=== PATIENT | female | born 1935 | race Caucasian/White ===

== ENCOUNTER 2024-01-14 19:45 | Emergency (ER) | payer MEDICARE, SELFPAY ==
[2024-01-14 19:46] VITALS: BMI 23.0
[2024-01-14 19:48] VITALS: BP 135/63
[2024-01-14 19:56] VITALS: BP 119/75
[2024-01-14 20:00] VITALS: BP 130/66
--- NOTE | 2024-01-14 21:18 | ED.GENMED ---
History of Present Illness
General
Chief Complaint: Fall
Time Seen by Provider: 01/14/24 20:01
Travel History
Have you had any contact with someone who has COVID-19?: No
Do you have any symptoms of coronavirus? Fever > 100 degrees, chills, cough, shortness of breath, sore throat, loss of taste or smell, muscle aches, or headache?: No
History of Present Illness
History of Present Illness:
88-year-old female with history dementia presents to the emergency department from her nursing facility for evaluation after a mechanical fall. She states she struck her head on the ground there was no reported loss of consciousness. She is not on
anticoagulants. She is also complaining of right gluteal pain
Past History
Past History
ED Past Medical History: GERD, HTN and Hypercholesterolemia
ED Past Surgical History: Appendectomy, Bowel resection, (X 4), Gynecological (Hysterectomy) and Orthopedic (Back surgery, Left hip replacement)
Social History
Tobacco: Non-smoker
Alcohol: None
Personal:
Living: assisted living
Review of Systems
Review of Systems
Allergies reviewed?: Yes
All Other Systems: ROS reviewed and negative except as documented in HPI and ROS
Phy Exam
Physical Exam
Physical Exam:
GEN: Well appearing, NAD, WDWN
HEENT: Normocephalic and atraumatic, no ecchymosis or swelling, oral mucosa moist, no scleral icterus.
Cardiac: Regular rate and rhythm, no murmur
Lung: No respiratory distress, no tachypnea
MSK: No gross deformity or injuries. No midline cervical, thoracic, or lumbar spinal tenderness
Skin: Good color, no pallor or jaundice, no rashes
Neuro: Alert and oriented to baseline, follows commands, moves all extremities freely with no focal deficits
Psych: Calm, cooperative
Course
Orders/Labs/Results
Orders:
Orders
01/14/24 20:22
CT Head W/o Iv Contrast Urgent
Comment:
Reason For Exam: fall head injury
CR Hip - RT w/wo Pel 2-3 Vw* Urgent
Comment:
Reason For Exam: fall, R buttock pain
Include a pelvis x-ray?: Yes
Vital Signs
Initial and Last Documented VS:
Initial Vital Signs
Temp Pulse Resp BP Pulse Ox
97.4 F 76 16 135/63 95
01/14/24 19:48 01/14/24 19:48 01/14/24 19:48 01/14/24 19:48 01/14/24 19:48
Last Documented Vital Signs
Temp Pulse Resp BP Pulse Ox
97.4 F 67 14 130/66 96
01/14/24 19:48 01/14/24 20:30 01/14/24 20:30 01/14/24 20:00 01/14/24 20:15
MDM/Problems Addressed
MDM/Problems Addressed:
Patient's imaging is unremarkable. Head CT negative, hip and pelvis x-ray showed no acute fracture. The patient was able to ambulate in the emergency department without difficulty. Discharged in stable condition into the care of her son who will
take her back to assisted living facility
*Critical Care Note
Total Time (30-74mins, 75-104mins- exclusive of procedures): Not Applicable
ED Attending Note
-
Portions of this chart may have been created with voice recognition software.� Occasional wrong word or��sound alike� substitutions may have occurred due to the inherent limitations of voice recognition software.
Discharge Plan
Departure
Patient Disposition: Home (Routine Discharge)
Date of Disposition: 01/14/24
Time of Disposition: 21:50
Patient with high blood pressure during this ER visit?: No
Discharge Problem:
Fall, Contusion of hip, right
Instructions: Preventing falls in adults
Prescriptions:
No Action
atorvastatin [Lipitor] 20 mg Tablet
20 mg PO QPM
donepezil 10 mg Tablet
10 mg PO HS
amlodipine [Norvasc] 5 mg Tablet
5 mg PO DAILY
acetaminophen [Tylenol Extra Strength] 500 mg Tablet
100 mg PO TID
calcium carbonate [Calcium 600] 600 mg calcium (1,500 mg) Tablet
600 mg PO BID
levothyroxine [Synthroid] 50 mcg Tablet
50 mcg PO DAILY
pantoprazole 40 mg Tablet,Delayed Release (Dr/Ec)
40 mg PO DAILY
ferrous sulfate 325 mg (65 mg iron) Tablet
325 mg PO MOWEFR@0800
cholecalciferol (vitamin D3) [Vitamin D3] 25 mcg (1,000 unit) Capsule
25 mcg PO DAILY
ibandronate 150 mg Tablet
150 mg PO MONTHLY
Referrals:
Karina Gautam DO [Family Provider] -
Interventions
Interventions:
*Risk Screen - Suicide Last Done: 01/14/24 20:32
*General Assessment Last Done: 01/14/24 20:32
*Neglect/Abuse Screening Last Done: 01/14/24 20:32
ED- Fall Risk Assessment Last Done: 01/14/24 20:32
ED-Musculoskeletal Assessment Last Done: 01/14/24 20:32
ED- Neurological Assessment Last Done: 01/14/24 20:32
ED-Skin Assessment Last Done: 01/14/24 20:32
Discharge Date and Time
Print Language: BRITISH
== END 2024-01-14 22:14 | disposition home or self-care (01) ==
LOC: EMR 19:45
PROVIDERS: EMERGENCY PHYSICIAN Student in an Organized Health Care Education/Training Program; FAMILY PHYSICIAN Student in an Organized Health Care Education/Training Program
DX: S09.90XA Unspecified injury of head, initial encounter (principal); W19.XXXA Unspecified fall, initial encounter; K21.9 Gastro-esophageal reflux disease without esophagitis; I10 Essential (primary) hypertension; E78.00 Pure hypercholesterolemia, unspecified; S70.01XA Contusion of right hip, initial encounter; Z90.49 Acquired absence of other specified parts of digestive tract; Z90.710 Acquired absence of both cervix and uterus; Z96.642 Presence of left artificial hip joint
CPT/HCPCS: 99284; 70450; 73502

== ENCOUNTER 2024-07-15 08:06 | Emergency (ER) | payer MEDICARE, SELFPAY ==
[2024-07-15] VITALS (8 sets, daily range): BP systolic 110–123; BP diastolic 74–84; BMI 23.2
--- NOTE | 2024-07-15 08:16 | ED.GENMED ---
History of Present Illness
General
Chief Complaint: Abdominal Symptoms
Source: patient and ambulance crew
Exam Limitations: dementia
Time Seen by Provider: 07/15/24 08:07
Nursing documentation reviewed up to this point in time: agreed with
History of Present Illness
History of Present Illness:
89-year-old female presents emergency department due to vomiting coffee-ground emesis per [facility]. EMS did not witness any vomiting. EMS also noted she had diarrhea.
Past History
Past History
ED Past Medical History: GERD, HTN and Hypercholesterolemia
ED Past Surgical History: Appendectomy, Bowel resection, (X 4), Gynecological (Hysterectomy) and Orthopedic (Back surgery, Left hip replacement)
Social History
Tobacco: Non-smoker
Alcohol: None
Drug: None
Personal:
Living: assisted living
Review of Systems
Review of Systems
Allergies reviewed?: Yes
All Other Systems: Not applicable
Constitutional: Reports no symptoms
EENT: Reports no symptoms
Respiratory: Reports no symptoms
Cardiac: Reports no symptoms
ABD/GI: Reports vomiting and diarrhea
: Reports no symptoms
Musculoskeletal: Reports no symptoms
Skin: Reports no symptoms
Neurological: Reports no symptoms
Endocrine: Reports no symptoms
Phy Exam
Physical Exam
Physical Exam:
Physical Exam
General: no apparent distress, not acutely ill
Neck: supple. no meningeal signs. normal posterior pharynx
Heart: s1/s2 regular rate and rhythm, no murmur. equal radial
pulses.
HEENT: Pupils equal round reactive to light, EOMI
Lungs: no acute respiratory distress. clear bilaterally
Abdomen: normal bowel sounds. not tender. no CVAT, rectal exam guaiac negative brown stool
Neuro: alert and oriented to person and place. no focal neurological deficits cranial nerves II through XII intact
Skin: no rash
Psychiatric: well kept. interactive and cooperative
Extremities: no edema. no calf tenderness. negative homans. good distal pulses
Course
Orders/Labs/Results
Orders:
Orders
07/15/24 08:15
Electrocardiogram (*1) Stat
Reason for Study: QTc Monitoring
EKG- Treatment ONCE
IV Insert/Care/Rem.- Treatment PRN
07/15/24 08:16
Electrocardiogram (*1) Urgent
07/15/24 08:36
Type+Screen Urgent
Complete Blood Count/With Diff Urgent
Comprehensive Metabolic Panel Urgent
07/15/24 09:40
ABO2 Urgent
BBK Wristband Number:
Associate notified that ABO2 has been ordered: [id number]
Date: 07/15/24
Time: 08:56
Youth Minister ID: [id number]
Abnormal Lab Results
07/15/24
08:36
WBC 11.7 H 10^3/uL
(4.8-10.8)
MCHC 31.8 L g/dL
(33.0-37.0)
MPV 11.3 H fL
(7.4-10.4)
Abs Immat Gran (auto) 0.1 H 10^3/uL
(0-0.05)
Absolute Neuts (auto) 10.4 H 10^3/uL
(1.4-6.5)
Absolute Lymphs (auto) 0.7 L 10^3/uL
(1.2-3.4)
Neutrophils % 89.1 H %
(42.2-75.2)
Lymphocytes % 6.1 L %
(20.5-51.1)
BUN 19 H mg/dl
(7-17)
Glucose 129 H mg/dl
(70-99)
07/15/24 08:36
07/15/24 08:36
Vital Signs
Initial and Last Documented VS:
Initial Vital Signs
Pulse Resp BP
97 15 111/74
07/15/24 08:15 07/15/24 08:15 07/15/24 08:15
Last Documented Vital Signs
Temp Pulse Resp BP Pulse Ox
97.7 F 75 17 113/84 100
07/15/24 08:17 07/15/24 13:00 07/15/24 13:00 07/15/24 13:00 07/15/24 08:17
MDM/Problems Addressed
Differential Diagnosis Includes:
GI bleed, gastroenteritis
MDM/Problems Addressed:
89-year-old female with nausea vomiting diarrhea. Abdomen benign. Guaiac testing negative.
*Pulse Oximetry
Patient hypoxic: no
*EKG
Interpreted by ED Provider?: Yes
EKG Intrepretation Date: 07/15/24
EKG Intrepretation Time: 08:45
Interpretation: abnormal
Comparison EKG: changes noted
Heart Rate: 86
Rate: normal
Rhythm: sinus
[place]: normal axis
Interval: normal interval
QRS Pattern: normal QRS
Ischemia: no ischemia
*Air Conditioning Mechanic Interpretation
Rate: normal
Interpretation: normal
Heart Rate: 84
Rhythm: sinus
*Critical Care Note
Total Time (30-74mins, 75-104mins- exclusive of procedures): Not Applicable
Data Reviewed
Review of Other/Old Records Reveals: Labs (BUN 15 on 04/11/23)
Source: records
Patient Management
Social determinants of health affecting care: Living situation and Strong social support
Escalation/DeEscalation of care consider admission/obs:
admit not indicated
ED Attending Note
-
Portions of this chart may have been created with voice recognition software.� Occasional wrong word or��sound alike� substitutions may have occurred due to the inherent limitations of voice recognition software.
Discharge Plan
Departure
Patient Disposition: Long-Term/SNF
Date of Disposition: 07/15/24
Time of Disposition: 12:39
Patient with high blood pressure during this ER visit?: Yes
Condition: Good
Discharge Problem:
Nausea and vomiting in adult, Diarrhea
Instructions: Diarrhea in teens and adults, Nausea and Vomiting, Adult (DC), BLOOD PRESSURE
Prescriptions:
No Action
atorvastatin [Lipitor] 20 mg Tablet
20 mg PO HS
donepezil 10 mg Tablet
10 mg PO HS
amlodipine [Norvasc] 5 mg Tablet
5 mg PO DAILY
acetaminophen [Tylenol Extra Strength] 500 mg Tablet
1,000 mg PO TID
calcium carbonate [Calcium 600] 600 mg calcium (1,500 mg) Tablet
600 mg PO BID@0900,1700
levothyroxine [Synthroid] 50 mcg Tablet
50 mcg PO DAILY@0700
pantoprazole 40 mg Tablet,Delayed Release (Dr/Ec)
40 mg PO HS
ferrous sulfate 325 mg (65 mg iron) Tablet
325 mg PO MOWEFR@0900
cholecalciferol (vitamin D3) [Vitamin D3] 25 mcg (1,000 unit) Capsule
25 mcg PO DAILY
ibandronate 150 mg Tablet
150 mg PO MONTHLY
Activity Restrictions/Additional Instructions:
Return for any concerns. Follow up with primary care in 3-5 days.
Interventions
Interventions:
*Risk Screen - Suicide Last Done: 07/15/24 08:17
*General Assessment Last Done: 07/15/24 08:17
*Neglect/Abuse Screening Last Done: 07/15/24 08:17
ED- Fall Risk Assessment Last Done: 07/15/24 08:48
*ED COVID-19 Vaccine History Last Done: 07/15/24 08:17
JK-[id number]-Dzuliaeutx Assessment Last Done: 07/15/24 08:48
Discharge Date and Time
Print Language: FAROESE
[2024-07-15 08:45] LABS: % Basophils 0.2 % (0-2); % Eosinophils 0.1 % (0-6); % Immature Granulocytes 0.4 % (0-0.5); % Lymphocytes 6.1 % (20.5-51.1); % Monocytes 4.1 % (1.7-9.3); % Neutrophils 89.1 % (42.2-75.2); Absolute Immature Granulocytes 0.1 10^3/uL (0-0.05); Absolute Lymphocytes 0.7 10^3/uL (1.2-3.4); Absolute Monocytes 0.5 10^3/uL (0.1-0.6); Absolute Neutrophils 10.4 10^3/uL (1.4-6.5); Hematocrit 39.6 % (37.0-47.0); Hemoglobin 12.6 g/dL (12.0-16.0); Mean Corp Hgb Conc. 31.8 g/dL (33.0-37.0); Mean Corpuscular Hgb 28.3 pg (27.0-31.0); Mean Platelet Volume 11.3 fL (7.4-10.4); Nucleated Red Blood Cells % 0 %; Platelet Count 229 10^3/uL (130-400); Red Blood Cell Count 4.45 10^6/uL (4.20-5.40); Red Cell Dist. Width 14.5 % (11.5-14.5); White Blood Cell Count 11.7 10^3/uL (4.8-10.8)
[2024-07-15 09:05] LABS: ALT (SGPT) 14 U/L (0-35); AST (SGOT) 24 U/L (14-36); Albumin 4.7 g/dl (3.5-5.0); Alkaline Phosphatase 73 U/L (38-126); Blood Urea Nitrogen 19 mg/dl (7-17); Carbon Dioxide 27 mmol/L (22-30); Chloride 98 mmol/L (98-107); Estimated Creatinine Clearance 45 ml/min; Glucose 129 mg/dl (70-99); Potassium 4.2 mmol/L (3.5-5.1); Sodium 143 mmol/L (135-145); Total Bilirubin 0.7 mg/dl (0.2-1.3); Total Protein 7.7 g/dl (6.3-8.2); eGFR > 60.00
--- NOTE | 2024-07-15 13:21 | EDRN ---
Reviewed discharge instructions with patient's son. Report given to FLORENCIA Suarez at [facility]. [facility] taken to [facility] in [facility]. Son is taking patient back to [facility].
== END 2024-07-15 13:20 ==
LOC: EMR 08:06
PROVIDERS: EMERGENCY PHYSICIAN Emergency Medicine
DX: R11.2 Nausea with vomiting, unspecified (principal); R19.7 Diarrhea, unspecified; F03.90 Unspecified dementia, unspecified severity, without behavioral disturbance, psychotic disturbance, mood disturbance, and anxiety; E78.00 Pure hypercholesterolemia, unspecified; I10 Essential (primary) hypertension; K21.9 Gastro-esophageal reflux disease without esophagitis; Z90.49 Acquired absence of other specified parts of digestive tract; Z90.710 Acquired absence of both cervix and uterus
CPT/HCPCS: 99284; 80053; 85025; 86850; 86900; 86901; 93005

== ENCOUNTER 2024-08-09 17:39 | Emergency (ER) | payer MEDICARE, SELFPAY ==
[2024-08-09] VITALS (11 sets, daily range): BP systolic 93–127; BP diastolic 50–70; BMI 19.5
[2024-08-09 18:03] LABS: % Basophils 0.2 % (0-2); % Eosinophils 0.2 % (0-6); % Immature Granulocytes 0.4 % (0-0.5); % Lymphocytes 11.4 % (20.5-51.1); % Neutrophils 81.8 % (42.2-75.2); Absolute Immature Granulocytes 0.1 10^3/uL (0-0.05); Absolute Lymphocytes 1.5 10^3/uL (1.2-3.4); Absolute Monocytes 0.8 10^3/uL (0.1-0.6); Absolute Neutrophils 10.4 10^3/uL (1.4-6.5); Hematocrit 34.8 % (37.0-47.0); Hemoglobin 11.2 g/dL (12.0-16.0); Mean Corp Hgb Conc. 32.2 g/dL (33.0-37.0); Mean Platelet Volume 10.3 fL (7.4-10.4); Nucleated Red Blood Cells % 0 %; Platelet Count 241 10^3/uL (130-400); Red Cell Dist. Width 15.1 % (11.5-14.5); White Blood Cell Count 12.8 10^3/uL (4.8-10.8)
[2024-08-09 18:23] LABS: Blood Urea Nitrogen 19 mg/dl (7-17); Calcium 7.2 mg/dl (8.4-10.2); Carbon Dioxide 23 mmol/L (22-30); Chloride 99 mmol/L (98-107); Estimated Creatinine Clearance 50 ml/min; Glucose 111 mg/dl (70-99); Sodium 139 mmol/L (135-145); eGFR > 60.00
--- NOTE | 2024-08-09 18:29 | ED.GENMED ---
History of Present Illness
General
Chief Complaint: Abdominal Symptoms
Source: patient, ambulance crew and assisted
Exam Limitations: dementia
Time Seen by Provider: 08/09/24 17:51
Nursing documentation reviewed up to this point in time: agreed with
History of Present Illness
History of Present Illness:
89-year-old female with a past medical history of dementia, hypertension, hyperlipidemia, CKD, GERD who presents to the emergency room from [facility]; she presents via EMS for evaluation of increased lethargy and diarrhea.
Patient is unable to meaningfully participate in history due to her severe dementia. When asked her how she is feeling she says 'okay.' She denies any specific complaints on review of systems. I spoke to the assisted staff directly to obtain
collateral history: Apparently over the past 2 to 3 days she has had watery diarrhea. She has had increasing lethargy over that period of time and today was so weak and lethargic that they could not get her to stand up and so they sent her to the
ER. No fevers noted. No vomiting. No other symptoms reported.
Past History
Past History
ED Past Medical History: GERD, HTN and Hypercholesterolemia
ED Past Surgical History: Appendectomy, Bowel resection, (X 4), Gynecological (Hysterectomy) and Orthopedic (Back surgery, Left hip replacement)
Social History
Tobacco: Non-smoker
Alcohol: None
Drug: None
Personal:
Living: assisted living
Review of Systems
Review of Systems
Unable to obtain full review of systems at this time due to: dementia
All Other Systems: Not applicable
Phy Exam
Physical Exam
Physical Exam:
General: Awake, alert, oriented x3; no acute distress
Head: Normocephalic, atraumatic
Eyes: Conjunctiva normal, sclera anicteric
Throat: Airway intact, slightly dry mucous membrane
Neck: Trachea midline, supple without meningismus
Lungs: Clear to auscultation bilaterally, no wheezing, rales, rhonchi
Heart: Regular rate and rhythm, no murmurs, gallops, or rubs
Abd: Soft, non distended, nontender
Rectal: No fecal impaction or stool in the rectal vault noted
Neuro: No gross deficit
Extremities: Warm and well-perfused
Scores
Heart Failure Risk
Heart Failure Risk Score: Not Applicable
Heart Score for Chest Pain Patients
STEMI patient?: Not applicable
Withdrawal Assessment of Alcohol
Withdrawal Assessment Completed?: Not applicable
Course
Orders/Labs/Results
Orders:
Orders
08/09/24 17:55
Basic Metabolic Panel Urgent
COVID-19 Antigen Urgent
Source: Nasal Swab
Complete Blood Count/With Diff Urgent
Influenza A+B Rapid Molecular Urgent
ERIKA Source: Nasal Swab
Specimen Description:
08/09/24 18:26
Urinalysis Reflex To Culture Urgent
Date Specimen was Collected: 08/09/24
Time Specimen was Collected: 18:11
08/09/24 18:32
0.9% Sodium Chloride 1000 ml [Nss] 1,000 ml IV BOLUS
08/09/24 19:50
0.9% Sodium Chloride 1000 ml [Nss] 1,000 ml IV BOLUS
Abnormal Lab Results
08/09/24
17:55
WBC 12.8 H 10^3/uL
(4.8-10.8)
RBC 4.00 L 10^6/uL
(4.20-5.40)
Hgb 11.2 L g/dL
(12.0-16.0)
Hct 34.8 L %
(37.0-47.0)
MCHC 32.2 L g/dL
(33.0-37.0)
RDW 15.1 H %
(11.5-14.5)
Abs Immat Gran (auto) 0.1 H 10^3/uL
(0-0.05)
Absolute Neuts (auto) 10.4 H 10^3/uL
(1.4-6.5)
Absolute Monos (auto) 0.8 H 10^3/uL
(0.1-0.6)
Neutrophils % 81.8 H %
(42.2-75.2)
Lymphocytes % 11.4 L %
(20.5-51.1)
BUN 19 H mg/dl
(7-17)
Glucose 111 H mg/dl
(70-99)
Calcium 7.2 L mg/dl
(8.4-10.2)
08/09/24 17:55
08/09/24 17:55
Vital Signs
Initial and Last Documented VS:
Initial Vital Signs
Temp Pulse Resp BP Pulse Ox
36.8 C 90 18 120/59 95
08/09/24 17:43 08/09/24 17:43 08/09/24 17:43 08/09/24 17:43 08/09/24 17:43
Last Documented Vital Signs
Temp Pulse Resp BP Pulse Ox
37.0 C 88 18 103/70 94
08/09/24 20:57 08/09/24 23:19 08/09/24 23:19 08/09/24 23:19 08/09/24 23:19
MDM/Problems Addressed
Differential Diagnosis Includes:
Gastroenteritis, colitis
MDM/Problems Addressed:
89-year-old female presents for evaluation of increasing lethargy and weakness in the setting of recent diarrheal illness. Vitals and exam as above. Will place an IV check labs including a CBC and a CMP; will swab for COVID and flu, send norovirus
studies. Will send stool studies if able. Will check urinalysis. Provide IV fluids. Reassess after the above.
Labs show slight leukocytosis of 12.8. CMP no clinically significant abnormalities. Urinalysis negative for infection. COVID and flu negative. Patient received IV fluids here. She has not had any diarrhea during entirety of ED stay. I had a
long discussion with the patient's son was at the bedside. We spoke about option for admission for observation for what I suspect is likely enteritis versus discharge back to assisted�I am concerned that admission may result in some delirium as
she does have history of sundowning; am not sure that benefit from admission for mild diarrheal illness with outweigh risk of significant delirium. Son feels comfortable with her going back to assisted, we spoke about return precautions. Can
write a prescription for outpatient stool studies. All questions answered.
*Critical Care Note
Total Time (30-74mins, 75-104mins- exclusive of procedures): Not Applicable
Patient Management
Social determinants of health affecting care: Living situation (Monitored setting-assisted) and Strong social support
Escalation/DeEscalation of care consider admission/obs:
Discussed admission for observation versus discharge assisted�using shared decision making with son opted for discharge
ED Attending Note
-
Portions of this chart may have been created with voice recognition software.� Occasional wrong word or��sound alike� substitutions may have occurred due to the inherent limitations of voice recognition software.
Discharge Plan
Departure
Patient Disposition: Home (Routine Discharge)
Date of Disposition: 08/09/24
Time of Disposition: 22:52
Patient with high blood pressure during this ER visit?: No
Discharge Problem:
Diarrhea, Dehydration
Instructions: Diarrhea in teens and adults, Dehydration, Adult (DC), [place] Diet
Prescriptions:
No Action
atorvastatin [Lipitor] 20 mg Tablet
20 mg PO HS
donepezil 10 mg Tablet
10 mg PO HS
amlodipine [Norvasc] 5 mg Tablet
5 mg PO DAILY
acetaminophen [Tylenol Extra Strength] 500 mg Tablet
1,000 mg PO TID
calcium carbonate [Calcium 600] 600 mg calcium (1,500 mg) Tablet
600 mg PO BID@0900,1700
levothyroxine [Synthroid] 50 mcg Tablet
50 mcg PO DAILY@0700
pantoprazole 40 mg Tablet,Delayed Release (Dr/Ec)
40 mg PO HS
ferrous sulfate 325 mg (65 mg iron) Tablet
325 mg PO MOWEFR@0900
cholecalciferol (vitamin D3) [Vitamin D3] 25 mcg (1,000 unit) Capsule
25 mcg PO DAILY
ibandronate 150 mg Tablet
150 mg PO MONTHLY
loperamide 2 mg Capsule
2 mg PO Q4H MDD 6mg PRN (Reason: diarrhea)
Referrals:
Hope Weiss, [Family Provider] - Follow up in 2-3 days
Activity Restrictions/Additional Instructions:
Thank you for visiting the Emergency Department at [facility].
1. Please schedule a follow up appointment as directed. Call first thing tomorrow morning to make an appointment.
2. If indicated, please take your medications as instructed and indicated on discharge paperwork.
3. If any of your symptoms do not improve, or persist, or become more severe within 6-12 hours, please return to the emergency department for further care.
4. Please return to the emergency department if you develop a headache, neck pain/stiffness, fever greater than 100.4F, chest pain, shortness of breath, persistent nausea, vomiting, slurred speech, difficulty walking, numbness/tingling, weakness,
signs of infection or any other symptoms that are worrisome to you.
Please call [phone] if you have any questions.
Interventions
Interventions:
*Risk Screen - Suicide Last Done: 08/09/24 18:02
*General Assessment Last Done: 08/09/24 18:02
*Neglect/Abuse Screening Last Done: 08/09/24 18:02
*ED COVID-19 Vaccine History Last Done: 08/09/24 18:08
*Nursing Disposition Last Done: 08/09/24 23:20
AY-[id number]-Uzbzymtvqw Assessment Last Done: 08/09/24 18:09
Discharge Date and Time
Discharge Date/Time: 08/09/24 23:22
Print Language: BRITISH
[2024-08-09 18:36] LABS: Urine Albumin Trace (Neg - Trace); Urine Bilirubin Negative (Negative); Urine Character Clear (Clear); Urine Color Yellow; Urine Glucose Negative (Negative); Urine Ketone Negative (Negative); Urine Leukocyte Negative (Negative); Urine Nitrite Negative (Negative); Urine Occult Blood Negative (Negative); Urine Specific Gravity 1.015 (<1.030); Urine Urobilinogen Negative (Neg - 1+)
[2024-08-09] MEDS: NSS 1000 IV ×2 (18:37→19:51)
[2024-08-09 18:41] LABS: COVID-19 Antigen Negative (Negative)
[2024-08-09 20:35] LABS: Glucose - Point of Care 76 mg/dl (70-99)
[2024-08-09 22:11] LABS: Glucose - Point of Care 89 mg/dl (70-99)
== END 2024-08-09 23:22 | disposition home or self-care (01) ==
LOC: EMR 17:39
PROVIDERS: EMERGENCY PHYSICIAN Emergency Medicine; FAMILY PHYSICIAN Hospitalist
DX: R19.7 Diarrhea, unspecified (principal); E86.0 Dehydration; Z11.52 Encounter for screening for COVID-19; F03.C0 Unspecified dementia, severe, without behavioral disturbance, psychotic disturbance, mood disturbance, and anxiety; I12.9 Hypertensive chronic kidney disease with stage 1 through stage 4 chronic kidney disease, or unspecified chronic kidney disease; N18.9 Chronic kidney disease, unspecified; K21.9 Gastro-esophageal reflux disease without esophagitis; Z98.0 Intestinal bypass and anastomosis status; Z96.642 Presence of left artificial hip joint; E78.00 Pure hypercholesterolemia, unspecified; Z88.5 Allergy status to narcotic agent
CPT/HCPCS: 99284; 96360; 96361; 80048; 81003; 82962; 85025; 87502; 87811

== ENCOUNTER 2024-08-16 10:52 | Observation (INO) | payer MEDICARE, SELFPAY ==
[2024-08-16] VITALS (10 sets, daily range): BP systolic 104–123; BP diastolic 49–71; BMI 23.3; BMI 22.9
--- NOTE | 2024-08-16 07:49 | ED.GENMED ---
History of Present Illness
General
Chief Complaint: Rectal Bleeding
Time Seen by Provider: 08/16/24 07:33
History of Present Illness
History of Present Illness:
89-year-old female presents to the emergency department for evaluation of reported hematochezia and hematemesis this morning. History is limited due to patient's dementia. She was in this emergency department 1 week ago for lethargy and diarrhea.
Diarrhea has become darker in bloody as of this morning. The patient reports shortness of breath and nausea on arrival. She is not on anticoagulants. Does take oral iron supplements
Past History
Past History
ED Past Medical History: GERD, HTN and Hypercholesterolemia
ED Past Surgical History: Appendectomy, Bowel resection, (X 4), Gynecological (Hysterectomy) and Orthopedic (Back surgery, Left hip replacement)
Social History
Tobacco: Non-smoker
Alcohol: None
Drug: None
Personal:
Living: assisted living
Review of Systems
Review of Systems
Allergies reviewed?: Yes
All Other Systems: ROS reviewed and negative except as documented in HPI and ROS
Phy Exam
Physical Exam
Physical Exam:
GEN: Generally pale, appears anxious
HEENT: Oral mucosa moist, no scleral icterus
Cardiac: Regular rate and rhythm
Lung: No respiratory distress, no tachypnea, lungs clear to auscultation bilaterally
Abdomen: Soft, nontender
Rectal: Melanotic stool, heme positive
MSK: No gross deformity or injuries
Skin: Good color, no pallor or jaundice, no rashes
Neuro: Alert, oriented to self, follows commands
Psych: Calm, cooperative
Course
Orders/Labs/Results
Orders:
Orders
08/16/24 07:47
Ondansetron Injectable [Zofran] 4 mg IV NOW STA
Pantoprazole [Protonix IV] 40 mg IV NOW STA
08/16/24 07:49
Electrocardiogram (*1) Urgent
Reason for Study: QTc Monitoring
EKG- Treatment ONCE
CR Chest Portable - 1 View Urgent
Comment:
Reason For Exam: SOB
Reason Study Needs to be Portable: Other
08/16/24 07:59
Type+Screen Urgent
Complete Blood Count/With Diff Urgent
Comprehensive Metabolic Panel Urgent
08/16/24 09:13
0.9% Sodium Chloride 500 ml [Nss] 500 ml IV BOLUS
Calcium Gluconate 1 gram/100mL [Calcium Gluconate] 1 gram in 100 ml IV ONCE
08/16/24 10:[address] Non Medication Order As Directed
Physician Order: NOTIFY MD WHEN MED REC DONE
Above order entered?: Yes
08/16/24 10:37
Admit/Transfer Patient As Directed
Co-Sign Provider:
Level of Care: Observation services
Assign to:: Medical/Surgical
Physician / Group: nando suazo
Diagnosis: Acute GI bleed,diarrhea
PRN Pain Medication Management As Directed
May give lesser potent ordered pain med per pt: Yes
preference::
Protocol:: Medication orders for pain may be administered in a
manner that supports deferring to patient preference
when the pt is:
- Requesting an ordered lesser potent pain medication.
Least to most potent pain medications are defined
as: acetaminophen < NSAID < tramadol < opioids
(morphine, oxycodone, hydromorphone).
- Requesting a lesser dose of the same medication IF
ORDERED.
- Requesting a less intrusive route of administration
if both routes are prescribed by the provider (PO <
IV).
08/16/24 10:40
Code Status As Directed
Resuscitation Status: Do not resuscitate
Based on pt advanced directive or healthcare POA form: Yes
DNR Bracelet Application ONCE
08/16/24 20:00
0.9% Sodium Chloride [Nss (Preservative Free)] 10 ml IV BID
Pantoprazole [Protonix IV] 40 mg IV BID
08/16/24 21:00
HH [H&H] Routine
Abnormal Lab Results
08/16/24
07:59
WBC 11.5 H 10^3/uL
(4.8-10.8)
RBC 3.70 L 10^6/uL
(4.20-5.40)
Hgb 10.4 L g/dL
(12.0-16.0)
Hct 32.1 L %
(37.0-47.0)
MCHC 32.4 L g/dL
(33.0-37.0)
RDW 15.9 H %
(11.5-14.5)
MPV 11.2 H fL
(7.4-10.4)
Abs Immat Gran (auto) 0.1 H 10^3/uL
(0-0.05)
Absolute Neuts (auto) 9.6 H 10^3/uL
(1.4-6.5)
Absolute Lymphs (auto) 0.9 L 10^3/uL
(1.2-3.4)
Absolute Monos (auto) 0.9 H 10^3/uL
(0.1-0.6)
Immature Gran % 0.7 H %
(0-0.5)
Neutrophils % 83.2 H %
(42.2-75.2)
Lymphocytes % 7.8 L %
(20.5-51.1)
BUN 21 H mg/dl
(7-17)
Calcium 6.9 L* mg/dl
(8.4-10.2)
Total Protein 5.8 L g/dl
(6.3-8.2)
Albumin 3.4 L g/dl
(3.5-5.0)
08/16/24 07:59
08/16/24 07:59
Vital Signs
Initial and Last Documented VS:
Initial Vital Signs
Temp Pulse Resp BP Pulse Ox
98.3 F 84 20 104/61 94
08/16/24 07:44 08/16/24 07:44 08/16/24 07:44 08/16/24 07:44 08/16/24 07:44
Last Documented Vital Signs
Temp Pulse Resp BP Pulse Ox
98.3 F 82 12 123/71 99
08/16/24 08:28 08/16/24 12:30 08/16/24 12:45 08/16/24 12:00 08/16/24 09:00
MDM/Problems Addressed
MDM/Problems Addressed:
Heme positive stool, grossly melanotic however she takes the oral iron supplementation which may obscure these results. Hemoglobin modestly decreased compared to prior labs. Will admit for further supportive care. In regards to hypocalcemia this
is likely from GI losses, IV calcium gluconate given in the ED, no significant EKG changes noted
*Critical Care Note
Total Time (30-74mins, 75-104mins- exclusive of procedures): Not Applicable
ED Attending Note
-
Portions of this chart may have been created with voice recognition software.� Occasional wrong word or��sound alike� substitutions may have occurred due to the inherent limitations of voice recognition software.
Discharge Plan
Departure
Patient Disposition: Admit
Date of Disposition: 08/16/24
Time of Disposition: 09:16
Admit to: Med/Surg
Presentation/result/management discussed w/ accepting MD/DO: Hospitalist
Discharge Problem:
Acute upper gastrointestinal bleeding, Hypocalcemia
Interventions
Interventions:
*Risk Screen - Suicide Last Done: 08/16/24 07:44
*General Assessment Last Done: 08/16/24 07:44
*Neglect/Abuse Screening Last Done: 08/16/24 07:44
*ED COVID-19 Vaccine History Last Done: 08/16/24 07:44
HZ-Urtqxd-Okzbssfejo Assessment Last Done: 08/16/24 12:56
ED- Cardiac Assessment Last Done: 08/16/24 08:54
ED- Pulmonary Assessment Last Done: 08/16/24 08:53
[2024-08-16 08:12] LABS: % Basophils 0.2 % (0-2); % Eosinophils 0.1 % (0-6); % Immature Granulocytes 0.7 % (0-0.5); % Lymphocytes 7.8 % (20.5-51.1); % Neutrophils 83.2 % (42.2-75.2); Absolute Immature Granulocytes 0.1 10^3/uL (0-0.05); Absolute Lymphocytes 0.9 10^3/uL (1.2-3.4); Absolute Monocytes 0.9 10^3/uL (0.1-0.6); Absolute Neutrophils 9.6 10^3/uL (1.4-6.5); Hematocrit 32.1 % (37.0-47.0); Hemoglobin 10.4 g/dL (12.0-16.0); Mean Corp Hgb Conc. 32.4 g/dL (33.0-37.0); Mean Corpuscular Hgb 28.1 pg (27.0-31.0); Mean Corpuscular Volume 86.8 fL (81.0-99.0); Mean Platelet Volume 11.2 fL (7.4-10.4); Nucleated Red Blood Cells % 0 %; Platelet Count 220 10^3/uL (130-400); Red Cell Dist. Width 15.9 % (11.5-14.5); White Blood Cell Count 11.5 10^3/uL (4.8-10.8)
[2024-08-16 08:30] LABS: ALT (SGPT) 13 U/L (0-35); AST (SGOT) 27 U/L (14-36); Albumin 3.4 g/dl (3.5-5.0); Alkaline Phosphatase 74 U/L (38-126); Blood Urea Nitrogen 21 mg/dl (7-17); Calcium 6.9 mg/dl (8.4-10.2); Carbon Dioxide 23 mmol/L (22-30); Chloride 102 mmol/L (98-107); Estimated Creatinine Clearance 43 ml/min; Glucose 84 mg/dl (70-99); Potassium 3.8 mmol/L (3.5-5.1); Sodium 137 mmol/L (135-145); Total Bilirubin 0.6 mg/dl (0.2-1.3); Total Protein 5.8 g/dl (6.3-8.2); eGFR > 60.00
[2024-08-16] MEDS: ZOFRAN 4 MG IV (08:30)
[2024-08-16] MEDS: PROTONIX IV 40 MG IV ×2 (08:31→20:21)
[2024-08-16] MEDS: CALCIUM GLUCONATE 100 IV (09:38)
[2024-08-16] MEDS: NSS 500 IV (10:17)
--- NOTE | 2024-08-16 10:42 | HPS.HSE ---
Family Physician
-
Family Physician: Hope Weiss DO
Chief Complaint
-
Hematochezia
History of Present Illness
89-year-old female with past medical history of GERD, hypertension, CKD, hypothyroidism, hyperlipidemia, scleroderma, Raynaud's syndrome, hard of hearing, dementia came to the hospital for evaluation of hematochezia. History is limited due to
patient history of dementia. Patient denies mild abdominal pain. Denies any shortness of breath. Per ED staff patient had hematochezia this morning. Stools were darker in the ED. Currently not on anticoagulations.
Medical History
Past Medical History
Past Medical History: Reports GERD, HTN, Hypothyroidism and Other (Raynaud's disease)
Past Surgical History: Reports Appendectomy, Bowel Resection, , Gynocological and Orthopedic
Social History
Unable to obtain full social history at this time due to: Dementia
Tobacco: Non-smoker
Family History
Family History: Not pertinent
Allergies / Home Medications
Allergies reflects when Allergies were last updated in [employer].
Home Medications with original date entered in [employer]
Allergy/Medication List:
Allergies
Allergy/AdvReac Type Severity Reaction Status Date / Time
codeine Allergy Unknown Verified 08/16/24 07:47
Home Medications
acetaminophen 500 mg tablet (Tylenol Extra Strength) 1,000 mg PO TID Pain 09/09/23
amlodipine 5 mg tablet (Norvasc) 5 mg PO DAILY Blood Pressure 09/09/23
atorvastatin 20 mg tablet (Lipitor) 20 mg PO HS High Cholesterol 09/09/23
calcium carbonate (Calcium 600) 600 mg PO BID@0900,1700 Supplement 09/09/23
donepezil 10 mg tablet 10 mg PO HS 09/09/23
ferrous sulfate 325 mg (65 mg iron) tablet 325 mg PO MOWEFR@0900 09/09/23
ibandronate 150 mg tablet 150 mg PO MONTHLY give at 6am, osteoporosis 09/09/23
levothyroxine 50 mcg tablet (Synthroid) 50 mcg PO DAILY@0715 Thyroid 09/09/23
pantoprazole 40 mg tablet,delayed release 40 mg PO HS Gastrointestinal Issue 09/09/23
loperamide 2 mg capsule 2 mg PO Q4HPRN PRN diarrhea 08/09/24
acetaminophen 325 mg tablet 650 mg PO BID@0900,2100 08/16/24
cholecalciferol (vitamin D3) 25 mcg (1,000 unit) tablet 25 mcg PO DAILY 08/16/24
Review of Systems
-
Unable to obtain full review of systems at this time due to: Dementia
History Source: Patient and [facility]
Abdomen/GI: Reports Other (Dark stool)
Physical Exam
Vital Signs
Vital Signs
Temp Pulse Resp BP Pulse Ox
98.3 F 82 26 116/59 96
08/16/24 08:28 08/16/24 10:00 08/16/24 08:28 08/16/24 10:00 08/16/24 08:53
Physical Exam
General: No Apparent Distress and Comfortable
HEENT: Moist mucous membranes and Atraumatic
Respiratory: Clear and Non Labored Respirations; No Wheezes
Cardiac: S1/S2 and Regular Rhythm
Breast: Deferred by me
GI: Soft, Non Tender and Non Distended
Rectal: Deferred by Provider
Genito-urinary: Deferred by me
Musculoskeletal: No Edema
Neuro: Awake
Psych: Calm and Apparent Dementia
Laboratory Results
-
08/16/24 07:59
Laboratory Results
Total Bilirubin 0.6 mg/dl (0.2-1.3) 08/16/24 07:59
AST 27 U/L (14-36) 08/16/24 07:59
ALT 13 U/L (0-35) 08/16/24 07:59
Alkaline Phosphatase 74 U/L (38-126) 08/16/24 07:59
Data Reviewed
-
Lab Data: Labs Reviewed by me and Discussed with Physician
Impression/Plan
-
Hematochezia suspect secondary to Possible GI bleed
start PPI for now
clears
Repeat hemoglobin later today; transfuse if hgb<7
If continues to have bleeding episodes then will need CT
Consult GI
Gentle hydration
Check iron panel, B12, folate
Anemia, suspect does have anemia of chronic disease. This could be acute on chronic
Monitor
History of hypertension
Continue amlodipine
Hypocalcemia
Replete
History of dementia, unknown type
Continue with donepezil
Hypothyroidism
Continue Synthroid
check TSH with reflective free t4
History of hyperlipidemia
History of scleroderma
History of Raynaud's syndrome
DVT prophylaxis
SCDs
DNR, per long-term paperwork
Called son, left voicemail
I spent a total of 77 minutes with the patient or on the floor. More than 50% of this time involved counseling and coordination of care.
[2024-08-16 14:18] LABS: Iron 41 ug/dl (37-170); Percent Saturation 19 % (20-50); Total Iron Binding Capacity 213 ug/dl (265-497)
[2024-08-16 15:16] LABS: Folate 7.6 ng/ml (2.76-20); Vitamin B12 810 pg/ml (239-931)
--- NOTE | 2024-08-16 15:46 | PTCARENOTE ---
Pt arrived via stretcher to room 333, pt ambulated with walker x 2 assist to bed, weighed on standing scale, bed alarm applied , vital sign taken, pt is alert but has dementia and not aware of person, place or time
[2024-08-16] MEDS: TYLENOL PO ×2 (16:26→16:39)
[2024-08-16] MEDS: OSCAL CAL 500 PO ×2 (16:26→16:39)
[2024-08-16] MEDS: NSS 1000 IV (16:27)
[2024-08-16] MEDS: NSS (PRESERVATIVE FREE) 10 ML IV (20:21)
[2024-08-16 21:20] LABS: Hemoglobin 8.7 g/dL (12.0-16.0)
[2024-08-16] MEDS: LIPITOR 20 MG PO (22:01)
[2024-08-16] MEDS: ARICEPT 10 MG PO (22:01)
[2024-08-16] MEDS: TYLENOL 1000 MG PO (22:01)
--- NOTE | 2024-08-17 04:10 | WOUNDNOTE ---
WOC RN note: Message left via tiger text to TA Jones re: recommend a hospital bed with air mattress if not already in place. Patient has a stage 4 sacral pressure injury.
[2024-08-17] MEDS: SYNTHROID 50 MCG PO (05:29)
[2024-08-17 06:00] VITALS: BMI 24.1
[2024-08-17 06:57] LABS: % Basophils 0.2 % (0-2); % Eosinophils 0.4 % (0-6); % Immature Granulocytes 0.8 % (0-0.5); % Monocytes 8.9 % (1.7-9.3); % Neutrophils 80.7 % (42.2-75.2); Absolute Immature Granulocytes 0.1 10^3/uL (0-0.05); Absolute Neutrophils 8.6 10^3/uL (1.4-6.5); Hematocrit 27.2 % (37.0-47.0); Hemoglobin 9.2 g/dL (12.0-16.0); Mean Corp Hgb Conc. 33.8 g/dL (33.0-37.0); Mean Corpuscular Hgb 28.7 pg (27.0-31.0); Mean Corpuscular Volume 84.7 fL (81.0-99.0); Mean Platelet Volume 11.2 fL (7.4-10.4); Nucleated Red Blood Cells % 0 %; Platelet Count 191 10^3/uL (130-400); Red Blood Cell Count 3.21 10^6/uL (4.20-5.40); Red Cell Dist. Width 15.8 % (11.5-14.5); White Blood Cell Count 10.6 10^3/uL (4.8-10.8)
[2024-08-17 07:13] LABS: ALT (SGPT) 11 U/L (0-35); AST (SGOT) 27 U/L (14-36); Albumin 2.7 g/dl (3.5-5.0); Alkaline Phosphatase 60 U/L (38-126); Blood Urea Nitrogen 18 mg/dl (7-17); Calcium 6.5 mg/dl (8.4-10.2); Carbon Dioxide 22 mmol/L (22-30); Chloride 104 mmol/L (98-107); Estimated Creatinine Clearance 43 ml/min; Glucose 56 mg/dl (70-99); Potassium 3.5 mmol/L (3.5-5.1); Sodium 137 mmol/L (135-145); Total Bilirubin 0.5 mg/dl (0.2-1.3); Total Protein 4.9 g/dl (6.3-8.2); eGFR > 60.00
[2024-08-17 07:39] LABS: TSH Reflex To Free T4 2.22 uIU/ml (0.47-4.68)
--- NOTE | 2024-08-17 07:49 | CON.GI ---
Addendum entered and electronically signed by Ying Mills MD 08/17/24 16:27:
I saw and examined the patient.
The BLOCKING MACHINE OPERATOR SECOND or PA's note was reviewed and I agree with the note.
Comment: 89-year-old female with multiple medical problems including dementia, chronic kidney disease, hypothyroidism, scleroderma who is extremely hard of hearing sent in from [facility] for nausea and vomiting and diarrhea for family members. As
per ER chart, there was ? Hematemesis/hematochezia but patient also on oral iron. She did have a bowel movement after admission which was brown. History cannot be obtained from patient, mostly obtained from patient's daughter and
[id number]-aqo-Evelyn. Patient denies any abdominal pain at this time, but did have episodes of nausea and vomiting and diarrhea intermittently, history of acid reflux and has been on omeprazole for few years now. No trouble swallowing. She did
reportedly lose weight but cannot quantify. As per daughter and the patient did have colonoscopy about 10 years ago or so but no polyps at that time.
Reviewing labs, hemoglobin has been in the range of 9.2-11.2 since 2022. Low iron indices noted.
-Iron deficiency anemia with dark stool on oral iron but brown in the hospital.
Heme positive stool on exam today.
Reviewed with patient's daughter and also [id number] Evelyn who is an RN. With patient's advanced dementia, they do not want to bentley into endoscopy evaluation at this time.
Reported nausea and vomiting and diarrhea episodes in the assisted living, we will monitor her bowel movements.
Currently she is on clear liquid diet-if she has any nausea and vomiting episodes, they would want to start with upper endoscopy first to see if there is any evidence of ulcer disease.
For now agree with Protonix 40 mg twice a day.
If she is able to tolerate the diet, at that time we will advance to full liquid diet followed by low residue diet.
Monitor H&H and transfuse if needed.
If she has diarrhea, will check stool studies for any evidence of infection.
Will follow-up
Original Note:
Consultation
-
Date/Time Consultation Requested: 08/16/24 1300
Date/Time Consultation Performed: 08/17/24 0930
Requesting Provider: Erick Bal MD
Performing Provider: SUDHIR Kennedy, Ying Mills MD
Reason for Consultation: black stools
Medical History
Chief Complaint / HPI
History of Present Illness:
Pt is a 89yo with hx GERD, HTN, CKD, hypothyroidism, hyperlipidemia, scleroderma, Raynaud's, hear of hearing, and dementia with onset of rectal bleeding. Rectal exam in ER with melanotic stool that was heme +. Since admission noted with black then
brown stool with hbg 10.4 with drop to 8.7. Limited evaluation with patient as confused. Per family hx GI bleeding post colonoscopy 10 year ago no bleeding since that time. She has had chronic anemia with hbg 9-11 range for last 2 years on oral
iron prior to admission. She also had several ER visits in last month. 07/15 with coffee ground emesis and diarrhea and return 08/09 with lethargy and diarrhea. In review with family she has had wt loss, recent diarrhea, and GERD on chronic PPI
but no issues with dysphagia, odynophagia, nausea, vomiting, constipation or red stools. Last colonoscopy 10 years ago at [facility] and no prior EGD in past per family.
Past Medical History
Past Medical History: GERD, HTN, Hypothyroidism, Renal Failure (CKD), Psychiatric (dementia) and Other (Raynaud's, hard of hearing, GI bleeding post colonoscopy about 10 years ago)
Past Surgical History: Appendectomy, Bowel Resection, , Gynecological (hysterectomy, x 4) and Orthopedic (back and hips surgery )
Social History
Tobacco: Former Smoker (quit in her 20's)
Alcohol: None
Drug: None
Living: Skilled Nursing
Employment: Retired
Family History
Family History: Reviewed & Not Pertinent
Allergies / Home Medications
Allergy/AdvReac Type Severity Reaction Status Date / Time
codeine Allergy Unknown Verified 08/16/24 07:47
�Medication �Instructions �Recorded
acetaminophen 500 mg tablet 1,000 mg PO TID Pain 09/09/23
(Tylenol Extra Strength)
amlodipine 5 mg tablet (Norvasc) 5 mg PO DAILY Blood Pressure 09/09/23
atorvastatin 20 mg tablet (Lipitor) 20 mg PO HS High Cholesterol 09/09/23
calcium carbonate (Calcium 600) 600 mg PO BID@0900,1700 Supplement 09/09/23
donepezil 10 mg tablet 10 mg PO HS 09/09/23
ferrous sulfate 325 mg (65 mg 325 mg PO MOWEFR@0900 09/09/23
iron) tablet
ibandronate 150 mg tablet 150 mg PO MONTHLY give at 6am, 09/09/23
osteoporosis
levothyroxine 50 mcg tablet 50 mcg PO DAILY@0715 Thyroid 09/09/23
(Synthroid)
pantoprazole 40 mg tablet,delayed 40 mg PO HS Gastrointestinal Issue 09/09/23
release
loperamide 2 mg capsule 2 mg PO Q4HPRN PRN diarrhea 08/09/24
acetaminophen 325 mg tablet 650 mg PO BID@0900,2100 08/16/24
cholecalciferol (vitamin D3) 25 25 mcg PO DAILY 08/16/24
mcg (1,000 unit) tablet
Review of Systems
-
Unable to obtain full review of systems at this time due to: Dementia
History Source: Patient and Family
Constitutional: Reports Weight Loss
EENT: Reports No Symptoms
Respiratory: Reports No Symptoms
Cardiac: Reports No Symptoms
Abdomen/GI: Reports Diarrhea and Black Stools
Musculoskeletal: Reports No Symptoms
Skin: Reports No Symptoms
Neurological: Reports Weakness
Endocrine: Reports No Symptoms
Hematologic/Lymphatic: Reports Bleeding
Vital Signs
Temp Pulse Resp BP Pulse Ox
98.0 F 65 20 110/49 99
08/16/24 23:34 08/16/24 23:34 08/16/24 23:34 08/16/24 23:34 08/16/24 23:34
Physical Exam
Exam
General: Well Developed, Well Nourished and No Apparent Distress
HEENT: Normocephalic and Anicteric
Respiratory: Clear
Cardiac: Regular Rhythm
GI: Soft, Non Tender and Non Distended
Rectal: Black (black/green ) and Hem Positive
Musculoskeletal: No Clubbing and No Cyanosis
Skin: Warm and Dry
Neuro: Awake, Alert and Other (confused )
Psych: Calm
Results
WBC 10.6 10^3/uL (4.8-10.8) 08/17/24 06:25
Hgb 9.2 g/dL (12.0-16.0) L 08/17/24 06:25
Hct 27.2 % (37.0-47.0) L 08/17/24 06:25
MCV 84.7 fL (81.0-99.0) 08/17/24 06:25
Plt Count 191 10^3/uL (130-400) 08/17/24 06:25
Absolute Neuts (auto) 8.6 10^3/uL (1.4-6.5) H 08/17/24 06:25
Sodium 137 mmol/L (135-145) 08/17/24 06:25
Potassium 3.5 mmol/L (3.5-5.1) 08/17/24 06:25
Chloride 104 mmol/L (98-107) 08/17/24 06:25
Carbon Dioxide 22 mmol/L (22-30) 08/17/24 06:25
BUN 18 mg/dl (7-17) H 08/17/24 06:25
Creatinine 0.7 mg/dL (0.6-1.0) 08/17/24 06:25
Calcium 6.5 mg/dl (8.4-10.2) L* 08/17/24 06:25
Total Bilirubin 0.5 mg/dl (0.2-1.3) 08/17/24 06:25
AST 27 U/L (14-36) 08/17/24 06:25
ALT 11 U/L (0-35) 08/17/24 06:25
Alkaline Phosphatase 60 U/L (38-126) 08/17/24 06:25
Diagnostic Image Results:
08/16 CXR
No acute cardiopulmonary process.
Prior GI Procedures:
EGD: none
Colonoscopy: 10 years ago with post procedure bleeding done at [place]
Assessment / Plan
-
Pt is a 89yo with hx GERD, HTN, CKD, hypothyroidism, hyperlipidemia, scleroderma, Raynaud's, hear of hearing, and dementia with onset of rectal bleeding. Rectal exam in ER with melanotic stool that was heme +. Since admission noted with black then
brown stool with hbg 10.4 with drop to 8.7. Limited evaluation with patient as confused. Per family hx GI bleeding post colonoscopy 10 year ago no bleeding since that time. She has had chronic anemia with hbg 9-11 range for last 2 years on oral
iron prior to admission. She also had several ER visits in last month. 07/15 with coffee ground emesis and diarrhea and return 08/09 with lethargy and diarrhea.
-melena
-recent ER eval with diarrhea/coffee ground emesis within last month
-chronic anemia -- iron studies mixed
-wt loss
other medical problems:
-GERD
-HTN
-CKD
-hypothyroidism
-hyperlipidemia
-scleroderma
-raynaud's
-hard of hearing
-dementia
-DNR
PLAN:
etiology of bleeding with recent coffee ground emesis related to PUD, lora lesion and HH ,mass, ectasia, vs other
no current vomiting or diarrhea overnight
await stool studies to be sent
I reviewed with son Romeo for EGD if neg then colon given anemia and dark heme + stools -- he is aware without scope PUD, ectasia, mass etc could be missed but not sure with dementia if pt would be able to completed colon prep
son will review with family fo decision
ok for clear diet today
trend hbg with some drop since admission
monitor stool output
agree with PPI BID -- pt was on HS dosing prior to admission but optimal dosing should be prior to a meal
-
-
Thank you for consultation and allowing me to participate in the patient's care. Please call the test inspection engineer GI physician during the after hours with any questions or concerns.
[2024-08-17 07:54] VITALS: BP 109/52
[2024-08-17] MEDS: VITAMIN D3 (cholecalciferol) 25 MCG PO (09:43)
[2024-08-17] MEDS: PROTONIX IV 40 MG IV ×2 (09:43→19:27)
[2024-08-17] MEDS: TYLENOL 1000 MG PO (09:43)
[2024-08-17] MEDS: OSCAL CAL 500 500 MG PO (09:43)
[2024-08-17] MEDS: NSS (PRESERVATIVE FREE) 10 ML IV ×2 (09:44→19:27)
--- NOTE | 2024-08-17 09:44 | CM ---
CM spoke with nursing staff at [facility]
Pt is a resident in their memory care unit
She is AxOx1 to family only, very pleasant with no behaviors
Pt is indep with ambulation and transfers with use of WW
She is able to perform personal care tasks with supervision and cueing
No oxygen at baseline, good skin integrity
PCP- Hope Weiss
Rx- Contract
Awaiting call back from [facility] DON to determine at what level pt can return back at
If VN needed on dc, preferred providers are [facility]
Call to son to introduce self and explain role
MARRERO verbally reviewed- copy left bedside for his visit later in day
PT/OT orders requested
If SNF needed on dc, pt will require [employer] auth
Discharge Disposition- anticipate return to [facility] with VN, watch for higher needs
--- NOTE | 2024-08-17 09:45 | WOUNDNOTE ---
SACRAL/COCCYX (sunlight/shadow in photo)
--- NOTE | 2024-08-17 09:45 | WOUNDNOTE ---
[facility] RN note: Patient admitted with Acute GI bleed, diarrhea.
See H&P for complete history.
PMH: dementia, scleroderma, CKD, KASAAN, bowel resection.
Wound Location and type/assessment: Patient admitted with: Stage 4 sacral pressure injury to muscle or deeper with yellow fibrin base. Moderate serous drainage.
Appetite: on clear liquid diet currently.
Pressure redistribution devices in place: [employer] Accumax. Patient does not turn self in bed. She was agitated when trying to turn her. It takes 2 people to turn patient.
Plan: Patient incontinent of urine. Jadyn care given. Sacral dressing changed. Applied W[employer] air overlay after discussing with FLORENCIA Butler and patient turned to L semi side lying position with help from FLORENCIA Uribe. Heels off bed with air chair cushion.
Will confirm orders with Dr. Marcum and updated FLORENCIA Butler.
Care plan to be updated and will follow as needed.
Note to case management of equipment requested for discharge: Air mattress if not already in place.
Recommend follow up at wound care center upon discharge.
--- NOTE | 2024-08-17 10:36 | W.PN.HOSP.TC ---
Today's Communication/Plan
-
see A/P
Assessment / Plan
Assessment / Plan
HPI: 89-year-old female with past medical history of GERD, hypertension, CKD, hypothyroidism, hyperlipidemia, scleroderma, Raynaud's syndrome, hard of hearing, dementia; p/w hematochezia. History is limited due to patient's history of dementia.
Patient denies mild abdominal pain. Denies any shortness of breath. Stools were darker in the ED. Currently not on anticoagulations.
A/P:
# Hematochezia suspect secondary to GI bleed
# Anemia, suspect anemia of chronic disease.
No further GI bleed per RN
Continue PPI BID
clears for now
Follow hemoglobin, transfuse if hgb<7
GI on board
s/p Gentle hydration
Iron panel acceptable, B12 level WNL
# Hypocalcemia
corrected calcium level at 7.5
replete 1 g calcium gluconate
Cont RAGMAN Calcium carbonate
# History of hypertension
BP soft, holding RAGMAN amlodipine
# History of dementia, unknown type
Continue with donepezil
# Hypothyroidism
TSH WNL at 2.22
Continue Synthroid
# History of hyperlipidemia
# History of scleroderma
# History of Raynaud's syndrome
DVT prophylaxis: SCDs
DNR, per shelter paperwork
Anticipated Discharge: > 48 hours
Subjective/Interval History
-
Date of Service: August 17, 2024
Objective Data
-
Labs:
Laboratory Results
08/17/24
06:25
WBC 10.6
Hgb 9.2 L
Hct 27.2 L
Plt Count 191
Sodium 137
Potassium 3.5
Chloride 104
Carbon Dioxide 22
BUN 18 H
Creatinine 0.7
Glucose 56 L
Calcium 6.5 L*
Total Bilirubin 0.5
AST 27
ALT 11
Alkaline Phosphatase 60
Vital Signs:
Vital Signs
Temp Pulse Resp BP Pulse Ox
37.1 C 81 20 109/52 91
08/17/24 07:54 08/17/24 07:54 08/17/24 07:54 08/17/24 07:54 08/17/24 07:54
I&O
08/16/24 08/17/24 08/18/24
06:59 06:59 06:59
Intake Total 1200 / 1200
Balance 1200 / 1200
Review of Systems
-
Unable to obtain full review of systems at this time due to: Dementia
Physical Exam
-
General: Well Developed, Well Nourished, No Apparent Distress, Comfortable and Conversant; Negative Respiratory Distress
HEENT: Normocephalic, Atraumatic, Nose Appears Normal and Ears Appear Normal; Negative Oxygen
Respiratory: Clear to Auscultation and Non Labored Respirations; Negative Accessory Resp Muscle Use
Cardiac: Regular Rhythm and S1/S2
GI: Soft, Nontender, Nondistended and Normal Bowel Sounds
Skin: Warm and Dry
Neuro: Awake and Alert
Psych: Calm and Apparent Dementia
Data Reviewed
-
Labs: Labs Reviewed by me
[2024-08-17] MEDS: CALCIUM GLUCONATE 100 IV (11:21)
[2024-08-17 12:32] VITALS: BMI 24.1
[2024-08-17] MEDS: TYLENOL PO ×3 (15:16→21:07)
[2024-08-17] MEDS: OSCAL CAL 500 PO (15:16)
--- NOTE | 2024-08-17 15:17 | PTCARENOTE ---
pt spitting out pills attempted with water and apple sauce. family at bedside made aware.
[2024-08-17 17:05] VITALS: BP 114/81
[2024-08-17] MEDS: LIPITOR PO ×2 (21:00→21:08)
[2024-08-17] MEDS: ARICEPT PO ×2 (21:02→21:08)
[2024-08-17 23:45] VITALS: BP 119/63
[2024-08-18] MEDS: SYNTHROID 50 MCG PO (05:02)
[2024-08-18 06:00] VITALS: BMI 24.8
[2024-08-18 06:26] LABS: Hematocrit 29.4 % (37.0-47.0); Hemoglobin 9.5 g/dL (12.0-16.0); Mean Corp Hgb Conc. 32.3 g/dL (33.0-37.0); Mean Corpuscular Hgb 27.8 pg (27.0-31.0); Mean Platelet Volume 11.2 fL (7.4-10.4); Platelet Count 214 10^3/uL (130-400); Red Blood Cell Count 3.42 10^6/uL (4.20-5.40); Red Cell Dist. Width 15.9 % (11.5-14.5); White Blood Cell Count 9.2 10^3/uL (4.8-10.8)
[2024-08-18 07:19] LABS: Blood Urea Nitrogen 15 mg/dl (7-17); Calcium 6.4 mg/dl (8.4-10.2); Carbon Dioxide 23 mmol/L (22-30); Chloride 102 mmol/L (98-107); Estimated Creatinine Clearance 50 ml/min; Glucose 73 mg/dl (70-99); Magnesium 0.4 mg/dl (1.6-2.3); Potassium 3.5 mmol/L (3.5-5.1); Sodium 136 mmol/L (135-145); eGFR > 60.00
[2024-08-18 07:26] VITALS: BP 118/47
[2024-08-18] MEDS: CALCIUM GLUCONATE 100 IV (09:09)
[2024-08-18] MEDS: KCL 40 MEQ PO (09:12)
[2024-08-18] MEDS: VITAMIN D3 (cholecalciferol) 25 MCG PO (09:12)
[2024-08-18] MEDS: OSCAL CAL 500 500 MG PO ×2 (09:12→17:04)
[2024-08-18] MEDS: TYLENOL 1000 MG PO ×2 (09:12→17:04)
--- NOTE | 2024-08-18 09:29 | W.PN.HOSP.TC ---
Today's Communication/Plan
-
see A/P
Assessment / Plan
Assessment / Plan
HPI: 89-year-old female with past medical history of GERD, hypertension, CKD, hypothyroidism, hyperlipidemia, scleroderma, Raynaud's syndrome, hard of hearing, dementia; p/w hematochezia. History is limited due to patient's history of dementia.
Patient denies mild abdominal pain. Denies any shortness of breath. Stools were darker in the ED. Currently not on anticoagulations.
A/P:
# Hematochezia suspect secondary to GI bleed, resolved
# anemia of chronic disease.
No further GI bleed per RN
Follow hemoglobin, today at 9.5; transfuse if hgb < 7
Per GI, family declined endoscopy evaluation at this time due to her advanced dementia
Continue PPI BID
clears for now, SPL prior to advancement of diet
Iron panel acceptable, B12 level WNL
# Hypocalcemia
# Hypomagnesemia
# Hypokalemia
replete lytes
Cont TOOLROOM CHECKER Calcium carbonate
# History of hypertension
BP stable, holding TOOLROOM CHECKER amlodipine
# History of dementia, unknown type
Continue with donepezil
# Hypothyroidism
TSH WNL at 2.22
Continue Synthroid
# History of hyperlipidemia
# History of scleroderma
# History of Raynaud's syndrome
DVT prophylaxis: SCDs
DNR, per [facility] paperwork
DW RN
Anticipated Discharge: 24 - 48 hours
Subjective/Interval History
-
Date of Service: August 18, 2024
Objective Data
-
Labs:
Laboratory Results
08/18/24
05:30
WBC 9.2
Hgb 9.5 L
Hct 29.4 L
Plt Count 214
Sodium 136
Potassium 3.5
Chloride 102
Carbon Dioxide 23
BUN 15
Creatinine 0.6
Glucose 73
Calcium 6.4 L*
Vital Signs:
Vital Signs
Temp Pulse Resp BP Pulse Ox
36.8 C 62 16 118/47 91
08/18/24 07:26 08/18/24 07:26 08/18/24 07:26 08/18/24 07:26 08/18/24 07:26
I&O
08/17/24 08/18/24 08/19/24
06:59 06:59 06:59
Intake Total 1200 / 1200
Balance 1200 / 1200
Review of Systems
-
Unable to obtain full review of systems at this time due to: Dementia
Physical Exam
-
General: Well Developed, Well Nourished, No Apparent Distress, Comfortable and Conversant; Negative Respiratory Distress
HEENT: Normocephalic, Atraumatic, Nose Appears Normal and Ears Appear Normal; Negative Oxygen
Respiratory: Clear to Auscultation and Non Labored Respirations; Negative Accessory Resp Muscle Use
Cardiac: Regular Rhythm and S1/S2
GI: Soft, Nontender, Nondistended and Normal Bowel Sounds
Skin: Warm and Dry
Neuro: Awake and Alert
Psych: Calm and Apparent Dementia
Data Reviewed
-
Labs: Labs Reviewed by me
[2024-08-18] MEDS: MAGNESIUM SULFATE 100 IV ×2 (10:50→16:58)
--- NOTE | 2024-08-18 11:30 | W.PN.GI.CBS2 ---
Today's Communication / Plan
-
PLAN:
-Iron deficiency anemia with dark stool on oral iron but brown in the hospital.
Heme positive stool on exam 08/17
Currently on clear liquid diet, no further vomiting or bowel movements. Will advance to full liquid diet.
Reviewed with patient's son and also [id number] Evelyn who is an RN over the phone. With patient's advanced dementia, they do not want to pursue endoscopy evaluation at this time.
Reported nausea and vomiting and diarrhea episodes in the assisted living, we will monitor her bowel movements.
Will monitor for nausea and vomiting on full liquid diet and then low residue diet. Will touch base with them again 08/20 and discussed regarding endoscopy if she has any symptoms.
Continue with Protonix 40 mg twice a day.
Monitor H&H and transfuse if needed.
If she has diarrhea, will check stool studies for any evidence of infection.
Will follow-up
Assessment / Plan
-
Pt is a 89yo with hx GERD, HTN, CKD, hypothyroidism, hyperlipidemia, scleroderma, Raynaud's, hear of hearing, and dementia with onset of rectal bleeding. Rectal exam in ER with melanotic stool that was heme +. Since admission noted with black then
brown stool with hbg 10.4 with drop to 8.7. Limited evaluation with patient as confused. Per family hx GI bleeding post colonoscopy 10 year ago no bleeding since that time. She has had chronic anemia with hbg 9-11 range for last 2 years on oral
iron prior to admission. She also had several ER visits in last month. 07/15 with coffee ground emesis and diarrhea and return 08/09 with lethargy and diarrhea.
-melena
-recent ER eval with diarrhea/coffee ground emesis within last month
-chronic anemia -- iron studies mixed
-wt loss
other medical problems:
-GERD
-HTN
-CKD
-hypothyroidism
-hyperlipidemia
-scleroderma
-raynaud's
-hard of hearing
-dementia
-DNR
PLAN:
-Iron deficiency anemia with dark stool on oral iron but brown in the hospital.
Heme positive stool on exam 08/17
Currently on clear liquid diet, no further vomiting or bowel movements. Will advance to full liquid diet.
Reviewed with patient's son and also [id number] Evelyn who is an RN over the phone. With patient's advanced dementia, they do not want to pursue endoscopy evaluation at this time.
Reported nausea and vomiting and diarrhea episodes in the assisted living, we will monitor her bowel movements.
Will monitor for nausea and vomiting on full liquid diet and then low residue diet. Will touch base with them again 08/20 and discussed regarding endoscopy if she has any symptoms.
Continue with Protonix 40 mg twice a day.
Monitor H&H and transfuse if needed.
If she has diarrhea, will check stool studies for any evidence of infection.
Will follow-up
Subjective
Subjective
Date of Service: August 18, 2024
Patient cannot give history, she is on clear liquid diet and she was able to eat some. As per RN, no vomiting episodes and no bowel movement
Objective
Data Reviewed
Laboratory Data:
Laboratory Results
08/18/24 05:30
08/18/24 05:30
Laboratory Results
Magnesium 0.4 mg/dl (1.6-2.3) L* 08/18/24 05:30
Total Bilirubin 0.5 mg/dl (0.2-1.3) 08/17/24 06:25
AST 27 U/L (14-36) 08/17/24 06:25
ALT 11 U/L (0-35) 08/17/24 06:25
Alkaline Phosphatase 60 U/L (38-126) 08/17/24 06:25
Vital Signs and I&O:
Vital Signs
Temp Pulse Resp BP Pulse Ox
98.2 F 62 16 118/47 98
08/18/24 07:26 08/18/24 07:26 08/18/24 07:26 08/18/24 07:26 08/18/24 09:36
I&O
08/17/24 08/18/24 08/19/24
06:59 06:59 06:59
Intake Total 1200 / 1200
Balance 1200 / 1200
Physical Exam
Physical Exam
GI: Soft, Non Distended and Non Tender
[2024-08-18 12:30] VITALS: BP 110/66; PULSE 102
[2024-08-18] MEDS: PROTONIX IV IV (12:35)
[2024-08-18] MEDS: NSS (PRESERVATIVE FREE) IV (12:36)
[2024-08-18 12:57] VITALS: BP 110/66; PULSE 102
[2024-08-18 15:28] VITALS: BP 92/53
--- NOTE | 2024-08-18 15:43 | CM ---
CM spoke with WILLARD/Sherry at [facility]
Unsure if pt will be able to readmit at current level
Pt also with stage IV wound and will need air mattress arranged
NURSING HOME PHYSICIAN it will take some time to arrange for her wound needs
Bedside meeting with pt and son
Pt pleasantly confused
Son in agreement with backup SNF referrals if [facility] cannot accept back
Referrals made to [facility], [facility], [facility] and [facility]
Role of [employer] explained in prior auth process
Discharge Disposition- anticipate SNF pending [employer] vs return to [facility] with VN, wound care and air mattress
--- NOTE | 2024-08-18 15:56 | PTOTSP ---
Dysphagia Evaluation
Patient with risk factors for dysphagia (i.e., scleroderma, dementia, GERD) but without signs of oral/pharyngeal dysphagia. Patient is appropriate to advance to regular and thin liquids if medically cleared by GI.
Recommend:
1. Regular, Thin
2. Medications as best tolerated
3. Strategies: upright to 90 degrees, alternate sips/bites and/or soften/moisten foods, reflux precautions
4. Supervision given dementia
5. No further dysphagia tx with an INVESTOR RELATIONS MANAGER warranted. Please reconsult as appropriate.
[2024-08-18] MEDS: SANTYL OINTMENT 1 APPLIC TOPICAL (16:48)
[2024-08-18] MEDS: NSS (PRESERVATIVE FREE) 10 ML IV (21:16)
[2024-08-18] MEDS: PROTONIX IV 40 MG IV (21:16)
[2024-08-18] MEDS: LIPITOR 20 MG PO (21:17)
[2024-08-18] MEDS: TYLENOL PO ×2 (21:17→21:32)
[2024-08-18] MEDS: ARICEPT 10 MG PO (21:19)
[2024-08-18 22:17] LABS: Transferrin 125 mg/dL (200-360)
[2024-08-18 23:18] VITALS: BP 113/60
[2024-08-19 03:44] LABS: Hematocrit 30.6 % (37.0-47.0); Mean Corp Hgb Conc. 32.7 g/dL (33.0-37.0); Mean Corpuscular Hgb 28.2 pg (27.0-31.0); Mean Corpuscular Volume 86.4 fL (81.0-99.0); Mean Platelet Volume 10.7 fL (7.4-10.4); Platelet Count 220 10^3/uL (130-400); Red Blood Cell Count 3.54 10^6/uL (4.20-5.40); Red Cell Dist. Width 15.6 % (11.5-14.5); White Blood Cell Count 8.3 10^3/uL (4.8-10.8)
[2024-08-19] MEDS: SYNTHROID 50 MCG PO (04:02)
[2024-08-19 04:16] LABS: Blood Urea Nitrogen 13 mg/dl (7-17); Calcium 7.3 mg/dl (8.4-10.2); Carbon Dioxide 27 mmol/L (22-30); Chloride 99 mmol/L (98-107); Estimated Creatinine Clearance 50 ml/min; Glucose 105 mg/dl (70-99); Magnesium 1.8 mg/dl (1.6-2.3); Potassium 3.4 mmol/L (3.5-5.1); Sodium 134 mmol/L (135-145); eGFR > 60.00
[2024-08-19] MEDS: KLOR-CON 20 MEQ PO (05:33)
[2024-08-19 06:00] VITALS: BMI 25.4
[2024-08-19 07:33] VITALS: BP 112/70
[2024-08-19] MEDS: PROTONIX IV 40 MG IV ×2 (10:28→20:38)
[2024-08-19] MEDS: KCL 40 MEQ PO (10:28)
[2024-08-19] MEDS: SANTYL OINTMENT 1 APPLIC TOPICAL (10:28)
[2024-08-19] MEDS: TYLENOL 1000 MG PO ×3 (10:28→21:42)
[2024-08-19] MEDS: NSS (PRESERVATIVE FREE) 10 ML IV ×2 (10:28→20:38)
[2024-08-19] MEDS: VITAMIN D3 (cholecalciferol) 25 MCG PO (10:29)
[2024-08-19] MEDS: OSCAL CAL 500 500 MG PO ×2 (10:29→17:24)
--- NOTE | 2024-08-19 11:56 | W.PN.HOSP.TC ---
Today's Communication/Plan
-
see A/P
Assessment / Plan
Assessment / Plan
HPI: 89-year-old female with past medical history of GERD, hypertension, CKD, hypothyroidism, hyperlipidemia, scleroderma, Raynaud's syndrome, hard of hearing, dementia; p/w hematochezia. History is limited due to patient's history of dementia.
Patient denies mild abdominal pain. Denies any shortness of breath. Stools were darker in the ED. Currently not on anticoagulations.
A/P:
# Hematochezia suspect secondary to GI bleed, resolved
# anemia of chronic disease.
No further GI bleed per RN
Follow hemoglobin, today at 9.5; transfuse if hgb < 7
Per GI, family declined endoscopy evaluation at this time due to her advanced dementia
Continue PPI BID
Advanced to low residue and pt tolerated well
Iron panel acceptable, B12 level WNL
# Hypocalcemia
# Hypomagnesemia
# Hypokalemia
repleted lytes
Cont GEOTECHNICAL DEPARTMENT MANAGER Calcium carbonate
# History of hypertension
BP stable, holding GEOTECHNICAL DEPARTMENT MANAGER amlodipine
# History of dementia, unknown type
Continue with donepezil
# Hypothyroidism
TSH WNL at 2.22
Continue Synthroid
# History of hyperlipidemia
# History of scleroderma
# History of Raynaud's syndrome
DVT prophylaxis: SCDs
[facility]
DW RN
Anticipated Discharge: Within 24 hours
Subjective/Interval History
-
Date of Service: August 19, 2024
Objective Data
-
Labs:
Laboratory Results
08/19/24
03:29
WBC 8.3
Hgb 10.0 L
Hct 30.6 L
Plt Count 220
Sodium 134 L
Potassium 3.4 L
Chloride 99
Carbon Dioxide 27
BUN 13
Creatinine 0.6
Glucose 105 H
Calcium 7.3 L
Vital Signs:
Vital Signs
Temp Pulse Resp BP Pulse Ox
36.6 C 78 16 112/70 95
08/19/24 07:33 08/19/24 07:33 08/19/24 07:33 08/19/24 07:33 08/19/24 07:33
I&O
08/18/24 08/19/24 08/20/24
06:59 06:59 06:59
Intake Total 980 / 980
Balance 980 / 980
Review of Systems
-
Unable to obtain full review of systems at this time due to: Dementia
Physical Exam
-
General: Well Developed, Well Nourished, No Apparent Distress, Comfortable and Conversant; Negative Respiratory Distress
HEENT: Normocephalic, Atraumatic, Nose Appears Normal and Ears Appear Normal; Negative Oxygen
Respiratory: Clear to Auscultation and Non Labored Respirations; Negative Accessory Resp Muscle Use
Cardiac: Regular Rhythm and S1/S2
GI: Soft, Nontender, Nondistended and Normal Bowel Sounds
Skin: Warm and Dry
Neuro: Awake and Alert
Psych: Calm and Apparent Dementia
Data Reviewed
-
Labs: Labs Reviewed by me
--- NOTE | 2024-08-19 12:42 | W.PN.GI.CBS2 ---
Today's Communication / Plan
-
Hgb stable. Tolerating LRD. GI will sign off, please call with questions.
Assessment / Plan
-
Pt is a 89yo with hx GERD, HTN, CKD, hypothyroidism, hyperlipidemia, scleroderma, Raynaud's, hear of hearing, and dementia with onset of rectal bleeding. Rectal exam in ER with melanotic stool that was heme +. Since admission noted with black then
brown stool with hbg 10.4 with drop to 8.7. Limited evaluation with patient as confused. Per family hx GI bleeding post colonoscopy 10 year ago no bleeding since that time. She has had chronic anemia with hbg 9-11 range for last 2 years on oral
iron prior to admission. She also had several ER visits in last month. 07/15 with coffee ground emesis and diarrhea and return 08/09 with lethargy and diarrhea.
-melena
-recent ER eval with diarrhea/coffee ground emesis within last month
-chronic anemia -- iron studies mixed
-wt loss
-Diarrhea
other medical problems:
-GERD
-HTN
-CKD
-hypothyroidism
-hyperlipidemia
-scleroderma
-raynaud's
-hard of hearing
-dementia
-DNR
PLAN:
-Iron deficiency anemia with dark stool on oral iron but brown in the hospital. Dr. Mills spoke with patient's son and [id number] who declined endoscopic evaluation given age and advanced dementia
Heme positive stool on exam 08/17, but hemoglobin stable.
Tolerating low residue diet
If she has diarrhea, check stool studies
GI will sign off. If family changes their mind and would like to pursue EGD, please call us back and we can arrange prior to d/c.
Subjective
Subjective
Date of Service: August 19, 2024
Patient seen in follow-up. Advanced to low residue diet and no issues so far. Plan for d/c to SNF on saturday. Hgb stable today, 10.
Objective
Data Reviewed
Laboratory Data:
Laboratory Results
08/19/24 03:29
08/19/24 03:29
Laboratory Results
Magnesium 1.8 mg/dl (1.6-2.3) 08/19/24 03:29
Total Bilirubin 0.5 mg/dl (0.2-1.3) 08/17/24 06:25
AST 27 U/L (14-36) 08/17/24 06:25
ALT 11 U/L (0-35) 08/17/24 06:25
Alkaline Phosphatase 60 U/L (38-126) 08/17/24 06:25
Vital Signs and I&O:
Vital Signs
Temp Pulse Resp BP Pulse Ox
97.8 F 78 16 112/70 95
08/19/24 07:33 08/19/24 07:33 08/19/24 07:33 08/19/24 07:33 08/19/24 07:33
I&O
08/18/24 08/19/24 08/20/24
06:59 06:59 06:59
Intake Total 980 / 980
Balance 980 / 980
Physical Exam
Physical Exam
GI: Soft, Non Distended and Non Tender
[2024-08-19 16:05] VITALS: BP 114/67
[2024-08-19] MEDS: DESENEX/MITRAZOL/ZEASORB 1 APPLIC TOPICAL (20:40)
[2024-08-19] MEDS: ARICEPT 10 MG PO (21:42)
[2024-08-19] MEDS: LIPITOR 20 MG PO (21:42)
[2024-08-19 23:00] VITALS: BP 102/57
[2024-08-20] MEDS: SYNTHROID 50 MCG PO (05:31)
[2024-08-20 06:00] VITALS: BMI 25.3
[2024-08-20] MEDS: VITAMIN D3 (cholecalciferol) 25 MCG PO (07:38)
[2024-08-20] MEDS: TYLENOL 1000 MG PO ×3 (07:38→21:26)
[2024-08-20] MEDS: PROTONIX IV 40 MG IV ×2 (07:38→20:29)
[2024-08-20] MEDS: NSS (PRESERVATIVE FREE) 10 ML IV ×2 (07:38→20:29)
[2024-08-20] MEDS: DESENEX/MITRAZOL/ZEASORB 1 APPLIC TOPICAL ×2 (07:40→20:48)
[2024-08-20] MEDS: SANTYL OINTMENT 1 APPLIC TOPICAL (07:40)
[2024-08-20 07:47] VITALS: BP 111/63
[2024-08-20 08:12] LABS: Hemoglobin 10.3 g/dL (12.0-16.0); Mean Corp Hgb Conc. 32.2 g/dL (33.0-37.0); Mean Corpuscular Hgb 27.8 pg (27.0-31.0); Mean Corpuscular Volume 86.3 fL (81.0-99.0); Mean Platelet Volume 11.2 fL (7.4-10.4); Platelet Count 241 10^3/uL (130-400); Red Blood Cell Count 3.71 10^6/uL (4.20-5.40); Red Cell Dist. Width 15.6 % (11.5-14.5); White Blood Cell Count 11.8 10^3/uL (4.8-10.8)
[2024-08-20 08:43] LABS: Blood Urea Nitrogen 12 mg/dl (7-17); Calcium 7.7 mg/dl (8.4-10.2); Carbon Dioxide 27 mmol/L (22-30); Chloride 102 mmol/L (98-107); Estimated Creatinine Clearance 50 ml/min; Glucose 95 mg/dl (70-99); Magnesium 1.6 mg/dl (1.6-2.3); Potassium 5.5 mmol/L (3.5-5.1); Sodium 135 mmol/L (135-145); eGFR > 60.00
[2024-08-20] MEDS: OSCAL CAL 500 500 MG PO ×2 (08:52→16:00)
--- NOTE | 2024-08-20 10:08 | W.PN.HOSP.TC ---
Today's Communication/Plan
-
dispo planning to SNF
Assessment / Plan
Assessment / Plan
HPI: 89-year-old female with past medical history of GERD, hypertension, CKD, hypothyroidism, hyperlipidemia, scleroderma, Raynaud's syndrome, hard of hearing, dementia; p/w hematochezia. History is limited due to patient's history of dementia.
Patient denies mild abdominal pain. Denies any shortness of breath. Stools were darker in the ED. Currently not on anticoagulations.
A/P:
# Hematochezia suspect secondary to GI bleed, resolved
# anemia of chronic disease.
No further GI bleed per RN
Follow hemoglobin, today at 9.5; transfuse if hgb < 7
Per GI, family declined endoscopy evaluation at this time due to her advanced dementia
Continue PPI BID
Advanced to low residue and pt tolerated well
Iron panel acceptable, B12 level WNL
# Hypocalcemia
# Hypomagnesemia
# Hypokalemia
repleted lytes
Cont ANTENNA SPECIALIST Calcium carbonate
# History of hypertension
BP stable, holding ANTENNA SPECIALIST amlodipine
# History of dementia, unknown type
Continue with donepezil
# Hypothyroidism
TSH WNL at 2.22
Continue Synthroid
# History of hyperlipidemia
# History of scleroderma
# History of Raynaud's syndrome
DVT prophylaxis: SCDs
DNR, per senior living paperwork
Anticipated Discharge: Within 24 hours
Subjective/Interval History
-
Date of Service: August 20, 2024
Objective Data
-
Labs:
Laboratory Results
08/20/24
07:40
WBC 11.8 H
Hgb 10.3 L
Hct 32.0 L
Plt Count 241
Sodium 135
Potassium 5.5 H D
Chloride 102
Carbon Dioxide 27
BUN 12
Creatinine 0.6
Glucose 95
Calcium 7.7 L
Vital Signs:
Vital Signs
Temp Pulse Resp BP Pulse Ox
36.7 C 72 16 111/63 91
08/19/24 16:05 08/20/24 07:47 08/20/24 07:47 08/20/24 07:47 08/20/24 07:47
I&O
08/19/24 08/20/24 08/21/24
06:59 06:59 06:59
Intake Total 980 / 980 480 / 480
Balance 980 / 980 480 / 480
Review of Systems
-
Unable to obtain full review of systems at this time due to: Dementia
Physical Exam
-
General: Well Developed, Well Nourished, No Apparent Distress, Comfortable and Conversant; Negative Respiratory Distress
HEENT: Normocephalic, Atraumatic, Nose Appears Normal and Ears Appear Normal; Negative Oxygen
Respiratory: Clear to Auscultation and Non Labored Respirations; Negative Accessory Resp Muscle Use
Cardiac: Regular Rhythm and S1/S2
GI: Soft, Nontender, Nondistended and Normal Bowel Sounds
Skin: Warm and Dry
Neuro: Awake and Alert
Psych: Calm and Apparent Dementia
Data Reviewed
-
Labs: Labs Reviewed by me
--- NOTE | 2024-08-20 10:27 | CM ---
Addendum entered by Gloria Velasquez 08/20/24 15:44:
Auth for SNF approved starting tomorrow, 08/21/2024 - 08/27/2024
Certification # [id number]
Plan: Discharge to [facility] tomorrow
Report # [id number]

Addendum entered by Gloria Velasquez 08/20/24 15:10:
Plan: Discharge to [facility]; pending Auth approval
Report # [id number]

Addendum entered by Gloria Velasquez 08/20/24 13:47:
[facility] accepted referral
TA spoke with patient's son, Romeo, explained that [facility] unable to manage wound care needed; son is agreeable with mother going to [facility] SNF
Plan: Discharge to [facility] pending insurance authorization approval
Addendum entered by Gloria Velasquez 08/20/24 13:36:
CM received a call from Hellen @ [facility]; reported that patient cannot return to facility; staff cannot manage Stage IV Wound Care
Plan: Discharge to SNF pending bed availability and Auth approval
Original Note:
Per Attending patient is stable for discharge
TA left a voice mail for BALLOON MAKER @ [facility] to call and let us know if they can accept patient; if not, patient will need to go to a SNF
Referrals were sent on 08/18; [facility] unable to accept; waiting for bed availability status at [facility], [facility] and [facility]
TA spoke with patient's son and provide discharge planning update
Plan: most likely will discharge to SNF pending bed availability and AUTH approval
[2024-08-20 10:55] VITALS: BP 117/67; BP 118/70; PULSE 73; O2SAT 90
[2024-08-20] MEDS: MAGNESIUM SULFATE 50 IV (11:29)
[2024-08-20 12:05] VITALS: BP 117/67; BP 118/70; PULSE 73; O2SAT 90
[2024-08-20 15:25] VITALS: BP 97/64
[2024-08-20] MEDS: ARICEPT 10 MG PO (21:26)
[2024-08-20] MEDS: LIPITOR 20 MG PO (21:26)
[2024-08-20 23:35] VITALS: BP 109/64
[2024-08-21] MEDS: SYNTHROID 50 MCG PO (05:07)
[2024-08-21 06:00] VITALS: BMI 25.2
[2024-08-21 06:50] LABS: Hematocrit 27.5 % (37.0-47.0); Hemoglobin 9.4 g/dL (12.0-16.0); Mean Corp Hgb Conc. 34.2 g/dL (33.0-37.0); Mean Corpuscular Hgb 28.2 pg (27.0-31.0); Mean Corpuscular Volume 82.6 fL (81.0-99.0); Mean Platelet Volume 11.7 fL (7.4-10.4); Platelet Count 207 10^3/uL (130-400); Red Blood Cell Count 3.33 10^6/uL (4.20-5.40); Red Cell Dist. Width 15.8 % (11.5-14.5); White Blood Cell Count 9.7 10^3/uL (4.8-10.8)
[2024-08-21 07:00] VITALS: BP 119/67
[2024-08-21] MEDS: VITAMIN D3 (cholecalciferol) 25 MCG PO (07:36)
[2024-08-21] MEDS: PROTONIX IV 40 MG IV (07:36)
[2024-08-21] MEDS: TYLENOL 1000 MG PO (07:36)
[2024-08-21] MEDS: DESENEX/MITRAZOL/ZEASORB 1 APPLIC TOPICAL (07:37)
[2024-08-21] MEDS: NSS (PRESERVATIVE FREE) 10 ML IV (07:37)
[2024-08-21] MEDS: SANTYL OINTMENT 1 APPLIC TOPICAL (07:38)
[2024-08-21 08:29] LABS: Blood Urea Nitrogen 16 mg/dl (7-17); Calcium 7.6 mg/dl (8.4-10.2); Carbon Dioxide 25 mmol/L (22-30); Chloride 102 mmol/L (98-107); Estimated Creatinine Clearance 50 ml/min; Glucose 79 mg/dl (70-99); Potassium 4.8 mmol/L (3.5-5.1); Sodium 131 mmol/L (135-145); eGFR > 60.00
--- NOTE | 2024-08-21 10:21 | CM ---
Addendum entered by Gloria Velasquez 08/21/24 11:42:
Ambulance brass pickler scheduled for 1430
Addendum entered by Gloria Velasquez 08/21/24 11:27:
IMM benefit explained to patient's son, Romeo, via phone; form dated/timed
Original Note:
Plan: [facility] ambulance
Report # [phone]

Auth for SNF approved 08/21/2024 - 08/27/2024
Certification # [id number]
[2024-08-21] MEDS: OSCAL CAL 500 500 MG PO (10:52)
--- NOTE | 2024-08-21 11:03 | W.PN.HOSP.TC ---
Addendum entered and electronically signed by Josephine Marcum MD 08/21/24 14:30:
total DC time 36 min
Original Note:
Today's Communication/Plan
-
DC to SNF today
Assessment / Plan
Assessment / Plan
HPI: 89-year-old female with past medical history of GERD, hypertension, CKD, hypothyroidism, hyperlipidemia, scleroderma, Raynaud's syndrome, hard of hearing, dementia; p/w hematochezia. History is limited due to patient's history of dementia.
Patient denies mild abdominal pain. Denies any shortness of breath. Stools were darker in the ED. Currently not on anticoagulations.
A/P:
# Hematochezia suspect secondary to GI bleed, resolved
# anemia of chronic disease.
No further GI bleed per RN
Follow hemoglobin, today at 9.5; transfuse if hgb < 7
Per GI, family declined endoscopy evaluation at this time due to her advanced dementia
Continue PPI BID
Advanced to low residue and pt tolerated well
Iron panel acceptable, B12 level WNL
# Hypocalcemia
# Hypomagnesemia
# Hypokalemia
repleted lytes
Cont ANNEALING OVEN OPERATOR Calcium carbonate
# History of hypertension
BP stable, holding ANNEALING OVEN OPERATOR amlodipine
# History of dementia, unknown type
Continue with donepezil
# Hypothyroidism
TSH WNL at 2.22
Continue Synthroid
# History of hyperlipidemia
# History of scleroderma
# History of Raynaud's syndrome
DVT prophylaxis: SCDs
DNR, per [facility] paperwork
DW RN
Anticipated Discharge: Today
Subjective/Interval History
-
Date of Service: August 21, 2024
Objective Data
-
Labs:
Laboratory Results
08/21/24 08/21/24
06:20 07:36
WBC 9.7
Hgb 9.4 L
Hct 27.5 L
Plt Count 207
Sodium Cancelled 131 L
Potassium Cancelled 4.8
Chloride Cancelled 102
Carbon Dioxide Cancelled 25
BUN Cancelled 16
Creatinine Cancelled 0.6
Glucose Cancelled 79
Calcium Cancelled 7.6 L
Vital Signs:
Vital Signs
Temp Pulse Resp BP Pulse Ox
36.6 C 63 18 119/67 92
08/21/24 07:00 08/21/24 07:00 08/21/24 07:00 08/21/24 07:00 08/21/24 07:00
I&O
08/20/24 08/21/24 08/22/24
06:59 06:59 06:59
Intake Total 480 / 480 900 / 900
Balance 480 / 480 900 / 900
Review of Systems
-
Unable to obtain full review of systems at this time due to: Dementia
Physical Exam
-
General: Well Developed, Well Nourished, No Apparent Distress, Comfortable and Conversant; Negative Respiratory Distress
HEENT: Normocephalic, Atraumatic, Nose Appears Normal and Ears Appear Normal; Negative Oxygen
Respiratory: Clear to Auscultation and Non Labored Respirations; Negative Accessory Resp Muscle Use
Cardiac: Regular Rhythm and S1/S2
GI: Soft, Nontender, Nondistended and Normal Bowel Sounds
Skin: Warm and Dry
Neuro: Awake and Alert
Psych: Calm and Apparent Dementia
Data Reviewed
-
Labs: Labs Reviewed by me
[2024-08-21] MEDS: FLUAD (65 yr+) 2024-2025 FORMULA 0.5 ML IM (12:44)
--- NOTE | 2024-08-21 14:17 | W.DCSUMMARY ---
Discharge Summary
Discharge Data
Date of Admission: 08/16/24
Date of Discharge: 08/21/24
-
Pending Results: No
Hospital Course
Principal Diagnosis:
Hematochezia suspect secondary to GI bleed, resolved
Hypocalcemia, Hypomagnesemia, Hypokalemia.
Chronic Diagnoses:�
Anemia of chronic disease.
History of hypertension
History of dementia, unknown type, on donepezil
Hypothyroidism, TSH 2.22 this admission
History of hyperlipidemia
History of scleroderma
History of Raynaud's syndrome
Consultations:�
Gastroenterology
Procedures:�
None
Clinical course:�
This is a 89-year-old female with past medical history as stated above, who presented with presumed hematochezia noted by custodial staff.
Problem 1:
Hematochezia suspect secondary to GI bleed, resolved.
Patient has had no further GI bleed during her hospital stay.
Her hemoglobin has been around 9 and to 10 while in the hospital, hence no transfusion was needed.
She was kept on IV PPI twice daily while in the hospital and can continue with prior to admission p.o. daily following discharge.
Endoscopy was not pursued due to her advanced dementia and resolution of GI bleed.
Diet was advanced back to solid/low residue which she tolerated well. She can continue with regular diet following discharge.
Her iron panel and B12 level were also within normal limit.
Problem 2:
Hypocalcemia, Hypomagnesemia, Hypokalemia.
Electrolytes were repleted IV while in the hospital.
She can continue with her prior to admission Calcium carbonate following discharge.
As for the rest of her medical problems, they were stable during her hospital stay.
Discharge Plan
-
Patient Disposition: Long Term/SNF
Discharge Diagnosis/Procedures: Hematochezia- resolved;
Hypocalcemia/Hypomagnesemia/Hypokalemia- repleted electrolytes;
History of dementia (unknown type)
Condition: Fair
Diet: As tolerated
Additional Diets: supervised feeding
Activity: As tolerated
Driving Restrictions: No driving
Wound Care: Wound Care Instructions
Sacral ulcer-clean with Vashe wound cleanser, Santyl ointment, pack with strip of alginate, cover with silicone border foam, change daily and prn loosened dressing.
Air mattress
Turning schedule
Elevate heels off bed with pillow/s with pillow,s and/or air chair cushion; use soft heel relief boots if needed (i.e. Foot Waffle boots).
Pressure redistributing chair cushion (i.e. Roho, Air).
Follow up with wound rn coronary care unit or at wound care center call for an appointment.
Referrals:
Hope Weiss, DO [Family Provider] - in less than 1 week
Additional Discharge Medication Instructions: We have stopped Norvasc (your blood pressure has been stable without med)
Prescriptions:
Continued
atorvastatin [Lipitor] 20 mg Tablet
20 mg PO HS
donepezil 10 mg Tablet
10 mg PO HS
acetaminophen [Tylenol Extra Strength] 500 mg Tablet
1,000 mg PO TID
calcium carbonate [Calcium 600] 600 mg calcium (1,500 mg) Tablet
600 mg PO BID@0900,1700
levothyroxine [Synthroid] 50 mcg Tablet
50 mcg PO DAILY@0715
pantoprazole 40 mg Tablet,Delayed Release (Dr/Ec)
40 mg PO HS
ferrous sulfate 325 mg (65 mg iron) Tablet
325 mg PO MOWEFR@0900
ibandronate 150 mg Tablet
150 mg PO MONTHLY
Patient Comments:
given on the of every month
loperamide 2 mg Capsule
2 mg PO Q4HPRN MDD 6mg PRN (Reason: diarrhea)
cholecalciferol (vitamin D3) 25 mcg (1,000 unit) Tablet
25 mcg PO DAILY
acetaminophen 325 mg Tablet
650 mg PO BID@0900,2100
Discontinued
amlodipine [Norvasc] 5 mg Tablet
5 mg PO DAILY
Discharge Orders:
Discharge Patient (As Directed); Ordered 08/21/24
Ordered By: Josephine Marcum
Discharge Date and Time
Print Language: FAROESE
[2024-08-21 14:40] VITALS: BP 120/67
== END 2024-08-21 14:50 ==
LOC: 3 WEST ACU 10:52
PROVIDERS: Physician Assistant; ADMITTING PHYSICIAN Internal Medicine; ATTENDING PHYSICIAN Internal Medicine; EMERGENCY PHYSICIAN Emergency Medicine; FAMILY PHYSICIAN Hospitalist; OTHER PHYSICIAN Internal Medicine Gastroenterology
DX: K92.1 Melena (principal); K92.0 Hematemesis; F03.90 Unspecified dementia, unspecified severity, without behavioral disturbance, psychotic disturbance, mood disturbance, and anxiety; R06.02 Shortness of breath; R19.7 Diarrhea, unspecified; E78.00 Pure hypercholesterolemia, unspecified; I12.9 Hypertensive chronic kidney disease with stage 1 through stage 4 chronic kidney disease, or unspecified chronic kidney disease; K21.9 Gastro-esophageal reflux disease without esophagitis; E83.51 Hypocalcemia; N18.9 Chronic kidney disease, unspecified; E03.9 Hypothyroidism, unspecified; D50.9 Iron deficiency anemia, unspecified; I73.00 Raynaud's syndrome without gangrene; M34.9 Systemic sclerosis, unspecified; D63.1 Anemia in chronic kidney disease; H91.90 Unspecified hearing loss, unspecified ear; M51.369 Other intervertebral disc degeneration, lumbar region without mention of lumbar back pain or lower extremity pain; M51.379 Other intervertebral disc degeneration, lumbosacral region without mention of lumbar back pain or lower extremity pain; I49.1 Atrial premature depolarization; E83.42 Hypomagnesemia; E87.6 Hypokalemia; Z88.5 Allergy status to narcotic agent; Z90.49 Acquired absence of other specified parts of digestive tract; Z96.642 Presence of left artificial hip joint; Z90.710 Acquired absence of both cervix and uterus; Z66 Do not resuscitate; Z79.890 Hormone replacement therapy; Z87.891 Personal history of nicotine dependence; Z23 Encounter for immunization
CPT/HCPCS: 71045; 72220; 80048; 80053; 82607; 82728; 82746; 83540; 83550; 83735; 84443; 84466; 85014; 85018; 85025; 85027; 86850; 86900; 86901; 90662; 92610; 93005; 96361; 96374; 96375; 97116; 97162; 97167; 97530; 97535; 99285; G0008; G0378

== ENCOUNTER → 2024-09-10 11:36 | Outpatient (REF) | payer MEDICARE, SELFPAY ==
[2024-09-10 12:26] LABS: % Basophils 0.2 % (0-2); % Eosinophils 0.1 % (0-6); % Immature Granulocytes 0.4 % (0-0.5); % Lymphocytes 4.1 % (20.5-51.1); % Monocytes 6.9 % (1.7-9.3); % Neutrophils 88.3 % (42.2-75.2); Absolute Immature Granulocytes 0.1 10^3/uL (0-0.05); Absolute Lymphocytes 0.8 10^3/uL (1.2-3.4); Absolute Monocytes 1.4 10^3/uL (0.1-0.6); Mean Corp Hgb Conc. 32.1 g/dL (33.0-37.0); Mean Corpuscular Hgb 28.5 pg (27.0-31.0); Mean Corpuscular Volume 88.6 fL (81.0-99.0); Mean Platelet Volume 11.6 fL (7.4-10.4); Nucleated Red Blood Cells % 0 %; Platelet Count 238 10^3/uL (130-400); Red Blood Cell Count 3.16 10^6/uL (4.20-5.40); Red Cell Dist. Width 17.2 % (11.5-14.5); White Blood Cell Count 20.4 10^3/uL (4.8-10.8)
[2024-09-10 12:35] LABS: ALT (SGPT) < 10 U/L (0-35); AST (SGOT) 21 U/L (14-36); Alkaline Phosphatase 93 U/L (38-126); Blood Urea Nitrogen 20 mg/dl (7-17); Carbon Dioxide 26 mmol/L (22-30); Chloride 99 mmol/L (98-107); Glucose 66 mg/dl (70-99); Potassium 3.5 mmol/L (3.5-5.1); Sodium 135 mmol/L (135-145); Total Bilirubin 0.6 mg/dl (0.2-1.3); Total Protein 5.5 g/dl (6.3-8.2); eGFR > 60.00
== END ==
LOC: OLABMERCHI 11:36
PROVIDERS: ATTENDING PHYSICIAN Hospitalist
DX: I10 Essential (primary) hypertension (principal); N18.9 Chronic kidney disease, unspecified
CPT/HCPCS: 36415; 80053; 85025

== ENCOUNTER 2024-09-22 21:23 | Inpatient (IN) | payer MEDICARE, SELFPAY ==
[2024-09-22] VITALS (7 sets, daily range): BP systolic 94–115; BP diastolic 49–69; BMI 21.1
--- NOTE | 2024-09-22 18:04 | EDRN ---
Rachana PEGUERO in room w/ pt at this time.
--- NOTE | 2024-09-22 18:21 | ED.GENMED ---
History of Present Illness
<SUDHIR Gonzalez - Last Filed: 09/22/24 22:41>
General
Chief Complaint: Failure to Thrive
Source: [facility]
Exam Limitations: dementia
Time Seen by Provider: 09/22/24 18:00
History of Present Illness
History of Present Illness:
This is a 89 year old female that is brought in by ambulance with c/o body aches, feels cold and not eating or taking her medication. Nurse Jojo states that she looked pale. States that she did not eat all day or take her medication. States that she
was calling help me but when questioned what she needed she was unable to give them an answer. States that they felt her speech was slurred. and she c/o her body hurting. Denies any fever, chest pain, SOB, cough, abd pain, nausea, vomiting,
diarrhea, headache.
Past History
<SUDHIR Gonzalez - Last Filed: 09/22/24 22:41>
Past History
ED Past Medical History: GERD, HTN, Hypercholesterolemia, Hypothyroidism and Other (Alzheimers, Back pain, Raynauds)
ED Past Surgical History: Appendectomy, Bowel resection, (X 4), Gynecological (Hysterectomy) and Orthopedic (Back surgery, Left hip replacement)
Social History
Tobacco: Non-smoker
Alcohol: None
Drug: None
Personal:
Living: assisted living
Review of Systems
<SUDHIR Gonzalez - Last Filed: 09/22/24 22:41>
Review of Systems
Unable to obtain full review of systems at this time due to: dementia
Other source history: [facility]
All Other Systems: ROS reviewed and negative except as documented in HPI and ROS
Constitutional: Reports no symptoms; Denies fever or chills
EENT: Reports no symptoms
Respiratory: Reports no symptoms; Denies cough or trouble breathing
Cardiac: Reports no symptoms; Denies chest pain
ABD/GI: Denies abdominal pain, nausea, vomiting or diarrhea
: Reports no symptoms
Musculoskeletal: Reports other (Body aches)
Skin: Reports no symptoms
Neurological: Reports other (felt there was a change in mental status); Denies dizzy or headache
Psychiatric: Reports no symptoms
Phy Exam
<SUDHIR Gonzalez - Last Filed: 09/22/24 22:41>
General Physical Exam
General Presentation: no apparent distress
General age: appears stated age
General Skin: warm and dry
General Habitus: elderly
General Mental: usual mental status
General Hydration: appears well hydrated
ENT Exam
ENT Exam: TM's normal, pharynx normal and neck supple
Eye Exam
Eye Exam: EOMI
Cardiovascular Exam
Cardiovascular Exam: regular rate/rhythm and normal peripheral pulses
Pulmonary Exam
Pulmonary Exam: no respiratory distress, chest non tender, no rhonchi, no wheezing, no cough and other (Decreased breath sounds left base with fine crackles)
Gastrointestinal Exam
Gastrointestinal Exam: normal bowel sounds, non tender, soft, no organomegaly, no pulsatile mass, non distended and other (Stool Black hem positive)
Musculoskeletal Exam
Musculoskeletal Exam: full ROM and edema (+2pitting edema bilateral lower legs)
Skin Exam
Skin Exam: warm/dry, no rash, no petechia, pallor and other (Open wounds on the sacrum Quarter size)
Psychiatric Exam
Psychiatric Exam: normal mood/affect
Course
<SUDHIR Gonzalez - Last Filed: 09/22/24 22:41>
Orders/Labs/Results
Orders:
Orders
09/22/24 18:18
Pantoprazole [Protonix IV] 80 mg IV NOW STA
09/22/24 18:19
CR Chest - 2 Views Urgent
Comment:
Reason For Exam: Sob
09/22/24 18:26
Electrocardiogram (*1) Urgent
Reason for Study: Fatigue / Weakness
EKG- Treatment ONCE
09/22/24 18:45
Type And Crossmatch [Type+Screen] Urgent
Complete Blood Count/With Diff Urgent
NT-proBNP Urgent
Troponin I Urgent
09/22/24 19:02
Straight cath- Treatment ONCE
09/22/24 19:04
CT Head W/o Iv Contrast Urgent
Comment:
Reason For Exam: Change in mental status
09/22/24 20:09
Piperacillin/Tazo 3.375 Gram [Zosyn] 3.375 gram in 50 ml IV NOW
09/22/24 20:10
Vancomycin [Vancocin] 1,500 mg 0.9% Sodium Chloride 500 ml [Nss] 500 ml IV NOW
09/22/24 20:24
COVID-19 Antigen Urgent
Source: Nasal Swab
Influenza A+B Rapid Molecular Urgent
ERIKA Source: Nasal Swab
Specimen Description:
09/22/24 20:47
Comprehensive Metabolic Panel Routine
09/22/24 21:08
Urinalysis Reflex To Culture Urgent
Date Specimen was Collected: 09/22/24
Time Specimen was Collected: 21:04
Urine Microscopic Reflex Cult Urgent
Urine Culture Urgent
ERIKA Source: U
Specimen Description:
Date Specimen was Collected: 09/22/24
Time Specimen was Collected: 21:04
09/22/24 21:14
Admit/Transfer Patient As Directed
Co-Sign Provider:
Level of Care: Inpatient admission
Assign to:: Medical/Surgical
Physician / Group: magalys
Diagnosis: gi bleeding
Reason for Hospitalization: gi bleeding
Expected length of stay greater than two midnights?: Yes
ELOS- Estimated Length of Stay in days: 2
I certify the patient meets the requirements for IP care: Yes
Code Status As Directed
Resuscitation Status: Do not resuscitate
Reached after discussion with pt or family/Healthcare POA: Yes
DNR Bracelet Application ONCE
PRN Pain Medication Management As Directed
May give lesser potent ordered pain med per pt: Yes
preference::
Protocol:: Medication orders for pain may be administered in a
manner that supports deferring to patient preference
when the pt is:
- Requesting an ordered lesser potent pain medication.
Least to most potent pain medications are defined
as: acetaminophen < NSAID < tramadol < opioids
(morphine, oxycodone, hydromorphone).
- Requesting a lesser dose of the same medication IF
ORDERED.
- Requesting a less intrusive route of administration
if both routes are prescribed by the provider (PO <
IV).
09/22/24 21:17
Calcium Gluconate 1 gram/100mL [Calcium Gluconate] 1 gram in 100 ml IV ONCE
09/22/24 21:39
Troponin I Urgent
Abnormal Lab Results
09/22/24 09/22/24 09/22/24
18:45 20:47 21:08
WBC 18.2 H 10^3/uL
(4.8-10.8)
RBC 3.18 L 10^6/uL
(4.20-5.40)
Hgb 9.0 L g/dL
(12.0-16.0)
Hct 27.1 L %
(37.0-47.0)
RDW 17.4 H %
(11.5-14.5)
Abs Immat Gran (auto) 0.3 H 10^3/uL
(0-0.05)
Absolute Neuts (auto) 15.0 H 10^3/uL
(1.4-6.5)
Absolute Monos (auto) 1.3 H 10^3/uL
(0.1-0.6)
Immature Gran % 1.4 H %
(0-0.5)
Neutrophils % 82.1 H %
(42.2-75.2)
Lymphocytes % 9.1 L %
(20.5-51.1)
Calcium 6.6 L* mg/dl
(8.4-10.2)
Troponin I 0.084 H* ng/ml
Total Protein 5.5 L g/dl
(6.3-8.2)
Albumin 3.1 L g/dl
(3.5-5.0)
Urine Ketones 1+ A
(Negative)
Ur Occult Blood Reflex Trace A
(Negative)
Urine Nitrite (Reflex) Positive A
(Negative)
Urine Bilirubin 1+ A
(Negative)
Leukocyte Esterase Rfl 2+ A
(Negative)
Urine WBC (Reflex) >100 A /HPF
(0-5)
Urine Bacteria (Reflex) Many A
(Negative)
Urine Albumin (Reflex) 1+ A
(Neg - Trace)
09/22/24 18:45
09/22/24 20:47
Leukocytosis, H/H low Consistent with prior labs, Troponin elevation. Pro-BNP 4410, COVID and Influenza negative. Hypocalcemia (hospitalist notified)
Urine positive for infection. Second Troponin 0.087
Vital Signs
Initial and Last Documented VS:
Initial Vital Signs
BP
115/66
09/22/24 18:01
Last Documented Vital Signs
Temp Pulse Resp BP Pulse Ox
97.5 F 93 17 94/51 96
09/22/24 18:05 09/22/24 22:00 09/22/24 22:00 09/22/24 22:00 09/22/24 18:45
<Ady Kelly, DO - Last Filed: 09/22/24 19:08>
Orders/Labs/Results
Orders:
Orders
09/22/24 18:18
Pantoprazole [Protonix IV] 80 mg IV NOW STA
09/22/24 18:19
CR Chest - 2 Views Urgent
Comment:
Reason For Exam: Sob
09/22/24 18:26
Electrocardiogram (*1) Urgent
Reason for Study: Fatigue / Weakness
EKG- Treatment ONCE
09/22/24 18:45
Type And Crossmatch [Type+Screen] Urgent
Complete Blood Count/With Diff Urgent
NT-proBNP Urgent
Troponin I Urgent
09/22/24 19:02
Straight cath- Treatment ONCE
09/22/24 19:04
CT Head W/o Iv Contrast Urgent
Comment:
Reason For Exam: Change in mental status
09/22/24 20:09
Piperacillin/Tazo 3.375 Gram [Zosyn] 3.375 gram in 50 ml IV NOW
09/22/24 20:10
Vancomycin [Vancocin] 1,500 mg 0.9% Sodium Chloride 500 ml [Nss] 500 ml IV NOW
09/22/24 20:24
COVID-19 Antigen Urgent
Source: Nasal Swab
Influenza A+B Rapid Molecular Urgent
ERIKA Source: Nasal Swab
Specimen Description:
09/22/24 20:47
Comprehensive Metabolic Panel Routine
09/22/24 21:08
Urinalysis Reflex To Culture Urgent
Date Specimen was Collected: 09/22/24
Time Specimen was Collected: 21:04
Urine Microscopic Reflex Cult Urgent
Urine Culture Urgent
ERIKA Source: U
Specimen Description:
Date Specimen was Collected: 09/22/24
Time Specimen was Collected: 21:04
09/22/24 21:14
Admit/Transfer Patient As Directed
Co-Sign Provider:
Level of Care: Inpatient admission
Assign to:: Medical/Surgical
Physician / Group: magalys
Diagnosis: gi bleeding
Reason for Hospitalization: gi bleeding
Expected length of stay greater than two midnights?: Yes
ELOS- Estimated Length of Stay in days: 2
I certify the patient meets the requirements for IP care: Yes
Code Status As Directed
Resuscitation Status: Do not resuscitate
Reached after discussion with pt or family/Healthcare POA: Yes
DNR Bracelet Application ONCE
PRN Pain Medication Management As Directed
May give lesser potent ordered pain med per pt: Yes
preference::
Protocol:: Medication orders for pain may be administered in a
manner that supports deferring to patient preference
when the pt is:
- Requesting an ordered lesser potent pain medication.
Least to most potent pain medications are defined
as: acetaminophen < NSAID < tramadol < opioids
(morphine, oxycodone, hydromorphone).
- Requesting a lesser dose of the same medication IF
ORDERED.
- Requesting a less intrusive route of administration
if both routes are prescribed by the provider (PO <
IV).
09/22/24 21:17
Calcium Gluconate 1 gram/100mL [Calcium Gluconate] 1 gram in 100 ml IV ONCE
09/22/24 21:39
Troponin I Urgent
Abnormal Lab Results
09/22/24 09/22/24 09/22/24
18:45 20:47 21:08
WBC 18.2 H 10^3/uL
(4.8-10.8)
RBC 3.18 L 10^6/uL
(4.20-5.40)
Hgb 9.0 L g/dL
(12.0-16.0)
Hct 27.1 L %
(37.0-47.0)
RDW 17.4 H %
(11.5-14.5)
Abs Immat Gran (auto) 0.3 H 10^3/uL
(0-0.05)
Absolute Neuts (auto) 15.0 H 10^3/uL
(1.4-6.5)
Absolute Monos (auto) 1.3 H 10^3/uL
(0.1-0.6)
Immature Gran % 1.4 H %
(0-0.5)
Neutrophils % 82.1 H %
(42.2-75.2)
Lymphocytes % 9.1 L %
(20.5-51.1)
Calcium 6.6 L* mg/dl
(8.4-10.2)
Troponin I 0.084 H* ng/ml
Total Protein 5.5 L g/dl
(6.3-8.2)
Albumin 3.1 L g/dl
(3.5-5.0)
Urine Ketones 1+ A
(Negative)
Ur Occult Blood Reflex Trace A
(Negative)
Urine Nitrite (Reflex) Positive A
(Negative)
Urine Bilirubin 1+ A
(Negative)
Leukocyte Esterase Rfl 2+ A
(Negative)
Urine WBC (Reflex) >100 A /HPF
(0-5)
Urine Bacteria (Reflex) Many A
(Negative)
Urine Albumin (Reflex) 1+ A
(Neg - Trace)
09/22/24 18:45
09/22/24 20:47
Vital Signs
Initial and Last Documented VS:
Initial Vital Signs
BP
115/66
09/22/24 18:01
Last Documented Vital Signs
Temp Pulse Resp BP Pulse Ox
97.5 F 93 17 94/51 96
09/22/24 18:05 09/22/24 22:00 09/22/24 22:00 09/22/24 22:00 09/22/24 18:45
<SUDHIR Gonzalez - Last Filed: 09/22/24 22:41>
MDM/Problems Addressed
Differential Diagnosis Includes:
Gi bleed, PNA, Pleural effusion, UTI, COVID
MDM/Problems Addressed:
This is a 89 year old female that comes in by ambulance from [facility]. Told that patient as having difficulty walking. Attempted to call [facility] but no one was available to speak with. Await a call back
Will check labs, Chest x-ray. Give Protonix as stool black and hem positive.
Back into see patient and son. Explained that there is a couple things going on. Patient has an upper GI bleed, Chest x-ray shows a pleural effusion with CHF and possible Pneumonia due to patient elevated WBC's. Will admit patient. Hospitalist
notified.
Chronic conditions affecting care:
Alzhemiers
Acute Exacerbation and/or Progression of Chronic Illness:
NA
<SUDHIR Gonzalez - Last Filed: 09/22/24 22:41>
*Radiology
Radiology exam reviewed: preliminary read by ED provider (Chest- Left pleural effusion with possible Pneumonia and CHF. ) and radiology read reviewed (CT head-NO evidence of acute intracranial abnormality Chest- Stable linear scarring within the
medial aspect of both lower lungs. Cardiomegaly with no evidence for pulmonary edema or pleural effusion. )
*Pulse Oximetry
Patient hypoxic: no
*EKG
Interpreted by ED Provider?: Yes
Heart Rate: 84
Rate: normal
Rhythm: sinus and PAC's
[place]: left axis deviation
QRS Pattern: normal QRS
Ischemia: no ischemia
*[employer] Interpretation
Rate: normal
Heart Rate: 82
Rhythm: sinus and PAC's
*Critical Care Note
Total Time (30-74mins, 75-104mins- exclusive of procedures): Not Applicable
ED Attending Note
<SUDHIR Gonzalez - Last Filed: 09/22/24 22:41>
-
Portions of this chart may have been created with voice recognition software.� Occasional wrong word or��sound alike� substitutions may have occurred due to the inherent limitations of voice recognition software.
<Ady Kelly DO - Last Filed: 09/22/24 19:08>
ED Attending Note
Patient seen and examined by attending physician: Yes
ED Attending Note:
I reviewed and agree with history plan by Rubi Marquez. My exam revealed 89-year-old female with black stool, guaiac positive, decreased breath sounds on right, pale. Suspect GI bleed, possible pneumonia. Reported confusion at [facility], will
evaluate with CT head. Plan for admission. IV Protonix given.
Discharge Plan
Departure
Patient Disposition: Admit
Date of Disposition: 09/22/24
Time of Disposition: 20:15
Admit to: Telemetry
Presentation/result/management discussed w/ accepting MD/DO: Hospitalist
Patient with high blood pressure during this ER visit?: No
Condition: Good
Covid-19: Not Applicable
Discharge Problem:
Acute upper GI bleed, Pleural effusion on left, CHF (congestive heart failure), Possible Pneumonia, Acute UTI (urinary tract infection)
Interventions
Interventions:
*Risk Screen - Suicide Last Done: 09/22/24 18:05
*General Assessment Last Done: 09/22/24 18:05
*Neglect/Abuse Screening Last Done: 09/22/24 18:05
ED- Fall Risk Assessment Last Done: 09/22/24 18:05
*ED COVID-19 Vaccine History Last Done: 09/22/24 18:05
--- NOTE | 2024-09-22 18:45 | EDRN ---
Dr. Kelly in to see pt at this time.
[2024-09-22 18:54] LABS: % Basophils 0.2 % (0-2); % Eosinophils 0.1 % (0-6); % Immature Granulocytes 1.4 % (0-0.5); % Lymphocytes 9.1 % (20.5-51.1); % Monocytes 7.1 % (1.7-9.3); % Neutrophils 82.1 % (42.2-75.2); Absolute Immature Granulocytes 0.3 10^3/uL (0-0.05); Absolute Lymphocytes 1.7 10^3/uL (1.2-3.4); Absolute Monocytes 1.3 10^3/uL (0.1-0.6); Hematocrit 27.1 % (37.0-47.0); Mean Corp Hgb Conc. 33.2 g/dL (33.0-37.0); Mean Corpuscular Hgb 28.3 pg (27.0-31.0); Mean Corpuscular Volume 85.2 fL (81.0-99.0); Mean Platelet Volume 9.9 fL (7.4-10.4); Nucleated Red Blood Cells % 0 %; Platelet Count 324 10^3/uL (130-400); Red Blood Cell Count 3.18 10^6/uL (4.20-5.40); Red Cell Dist. Width 17.4 % (11.5-14.5); White Blood Cell Count 18.2 10^3/uL (4.8-10.8)
[2024-09-22 19:19] LABS: NT-proBNP 4410 pg/ml; Troponin I 0.084 ng/ml
[2024-09-22 20:49] LABS: COVID-19 Antigen Negative (Negative)
[2024-09-22 21:08] LABS: ALT (SGPT) 10 U/L (0-35); AST (SGOT) 22 U/L (14-36); Albumin 3.1 g/dl (3.5-5.0); Alkaline Phosphatase 89 U/L (38-126); Blood Urea Nitrogen 17 mg/dl (7-17); Calcium 6.6 mg/dl (8.4-10.2); Carbon Dioxide 22 mmol/L (22-30); Chloride 101 mmol/L (98-107); Glucose 91 mg/dl (70-99); Potassium 4.2 mmol/L (3.5-5.1); Sodium 136 mmol/L (135-145); Total Bilirubin 0.6 mg/dl (0.2-1.3); Total Protein 5.5 g/dl (6.3-8.2); eGFR > 60.00
--- NOTE | 2024-09-22 21:18 | HPS.HSE ---
Family Physician
-
Family Physician: * NONE
Chief Complaint
-
pale, not eating
History of Present Illness
89-year-old female past medical history of GERD, hypertension, CKD, hypothyroidism, hyperlipidemia, Raynaud's syndrome, hearing loss, dementia, presenting with bodyaches, and looking pale [facility]. She did not eat all day or take medication.
They thought her speech was slurred. She was complaining of body pain. Denies fever chest pain or shortness of breath or cough or abdominal pain or nausea or vomiting or diarrhea or headache.
Patient had rectal exam performed she looked pale. Patient had black pasty stool.
She had a urinary tract infection last week.
Medical History
Past Medical History
Past Medical History: Reports Other (GERD, hypertension, CKD, hypothyroidism, hyperlipidemia, Raynaud's syndrome, hearing loss, dementia,)
Past Surgical History: Reports Other (Appendectomy, Bowel resection, (X 4), Gynecological (Hysterectomy) and Orthopedic (Back surgery, Left hip replacement))
Social History
Tobacco: Non-smoker
Alcohol: None
Drug: None
Family History
Family History: Not pertinent
Allergies / Home Medications
Allergies reflects when Allergies were last updated in [facility].
Home Medications with original date entered in [facility]
Allergy/Medication List:
Allergies
Allergy/AdvReac Type Severity Reaction Status Date / Time
codeine Allergy Unknown Verified 09/22/24 18:04
Home Medications
atorvastatin 20 mg tablet (Lipitor) 20 mg PO HS High Cholesterol 09/09/23
calcium carbonate (Calcium 600) 600 mg PO BID Supplement 09/09/23
donepezil 10 mg tablet 10 mg PO HS memory/cognition 09/09/23
ferrous sulfate 325 mg (65 mg iron) tablet 325 mg PO MOWEFR@0900 Supplement 09/09/23
ibandronate 150 mg tablet 150 mg PO MONTHLY 09/09/23
levothyroxine 50 mcg tablet (Synthroid) 50 mcg PO DAILY Thyroid 09/09/23
pantoprazole 40 mg tablet,delayed release 40 mg PO HS Gastrointestinal Issue 09/09/23
loperamide 2 mg capsule 2 mg PO Q4HPRN PRN diarrhea 08/09/24
cholecalciferol (vitamin D3) 25 mcg (1,000 unit) tablet 25 mcg PO DAILY Supplement 08/16/24
acetaminophen 500 mg tablet 1,000 mg PO TID 09/22/24
amlodipine 5 mg tablet (Norvasc) 5 mg PO DAILY 09/22/24
collagenase clostridium histo. 250 unit/gram topical ointment (Santyl) 1 applic topical DAILY 09/22/24
Review of Systems
-
History Source: Patient
A 12 point ROS was completed and negative except as noted: Yes
Constitutional: Reports No Symptoms
EENT: Reports No Symptoms
Respiratory: Reports No Symptoms
Cardiac: Reports No Symptoms
Abdomen/GI: Reports No Symptoms
: Reports No Symptoms
Musculoskeletal: Reports No Symptoms
Skin: Reports No Symptoms
Neurological: Reports No Symptoms
Endocrine: Reports No Symptoms
Hematologic/Lymphatic: Reports No Symptoms
Psych: Reports No Symptoms
Physical Exam
Vital Signs
Vital Signs
Temp Pulse Resp BP Pulse Ox
97.5 F 98 24 115/66 96
09/22/24 18:05 09/22/24 18:45 09/22/24 18:45 09/22/24 18:05 09/22/24 18:45
Physical Exam
General: Well Developed, Well Nourished and No Apparent Distress
HEENT: NormoCephalic, Moist mucous membranes and Atraumatic
Respiratory: Clear
Cardiac: S1/S2 and Regular Rhythm; No Murmur or Rub
GI: Soft, Non Tender, Non Distended and Normal Bowel Sounds; No Organomegaly
Rectal: Deferred by Provider
Musculoskeletal: No Clubbing, No Cyanosis and No Edema
Skin: No Rash
Neuro: Nonfocal/grossly intact
Laboratory Results
-
09/22/24 18:45
09/22/24 20:47
Laboratory Results
Total Bilirubin 0.6 mg/dl (0.2-1.3) 09/22/24 20:47
AST 22 U/L (14-36) 09/22/24 20:47
ALT 10 U/L (0-35) 09/22/24 20:47
Alkaline Phosphatase 89 U/L (38-126) 09/22/24 20:47
Troponin I 0.084 ng/ml H* 09/22/24 18:45
Data Reviewed
-
Lab Data: Labs Reviewed by me
Old Records: Reviewed
Impression/Plan
-
IMPRESSION:
PLAN:
# Leukocytosis possibly URI versus UTI
-Leukocytosis
-Cardiac BNP 4400
-COVID and influenza negative
-Chest x-ray shows stable linear scarring the medial aspect of both lower lungs, cardiomegaly without evidence of pulm edema or pleural effusion
-Urinalysis pending
-Given Vanco and Zosyn, stop further antibiotics unless urinalysis positive
# Upper GI bleeding
# History of hematochezia
-Hemoglobin stable at 9
-Rectal exam showed heme positive black pasty stool performed because she looks pale
-EGD previously declined due to advanced dementia
-Will hold off GI evaluation unless hemoglobin drops or further black stools
-Clear liquid diet
-Protonix 40 IV twice daily
# Hypocalcemia
-Replete calcium
Anemia of chronic disease
-Hemoglobin stable at 9
GERD
-Continue Protonix
Essential hypertension
-Continue amlodipine
Dementia
-Continue donepezil
Hypothyroidism
-Levothyroxine
Hyperlipidemia
-Continue statin
Scleroderma
Raynaud's syndrome
DNR/DNI
DVT prophylaxis�SCDs
Clear liquid diet
[2024-09-22] MEDS: ZOSYN 50 IV (21:46)
[2024-09-22 21:53] LABS: Urine Albumin 1+ (Neg - Trace); Urine Bilirubin 1+ (Negative); Urine Character Very Cloudy (Clear); Urine Color Yellow; Urine Glucose Negative (Negative); Urine Ketone 1+ (Negative); Urine Leukocyte 2+ (Negative); Urine Nitrite Positive (Negative); Urine Occult Blood Trace (Negative); Urine Urobilinogen Negative (Neg - 1+)
[2024-09-22] MEDS: PROTONIX IV 80 MG IV (21:54)
[2024-09-22] MEDS: CALCIUM GLUCONATE 100 IV (21:58)
[2024-09-22] MEDS: VANCOCIN 530 MG IV (21:58)
[2024-09-22 22:09] LABS: Troponin I 0.087 ng/ml
[2024-09-22 22:22] LABS: Urine Bacteria Many (Negative); Urine Red Blood Cell 0-2 /HPF (0-2); Urine White Cell >100 /HPF (0-5)
--- NOTE | 2024-09-22 22:22 | EDRN ---
WOUND SKIN CARE NOTE: Pt identified by name and .
Coccyx
Coccyx
Coccyx
[2024-09-23] MEDS: TYLENOL PO ×3 (00:11→22:00)
--- NOTE | 2024-09-23 00:32 | PTCARENOTE ---
Pt arrived to room 336-1 via stretcher and pulled over into bed with staff assistance. Pt confused, unable to tell this RN where were are, what her name is, or any other question. Will continue to monitor pt.
[2024-09-23 05:58] LABS: % Basophils 0.2 % (0-2); % Immature Granulocytes 1.2 % (0-0.5); % Monocytes 7.8 % (1.7-9.3); % Neutrophils 82.8 % (42.2-75.2); Absolute Immature Granulocytes 0.2 10^3/uL (0-0.05); Absolute Lymphocytes 1.2 10^3/uL (1.2-3.4); Absolute Monocytes 1.2 10^3/uL (0.1-0.6); Absolute Neutrophils 12.6 10^3/uL (1.4-6.5); Hematocrit 21.9 % (37.0-47.0); Hemoglobin 7.6 g/dL (12.0-16.0); Mean Corp Hgb Conc. 34.7 g/dL (33.0-37.0); Mean Corpuscular Hgb 29.1 pg (27.0-31.0); Mean Corpuscular Volume 83.9 fL (81.0-99.0); Mean Platelet Volume 10.4 fL (7.4-10.4); Nucleated Red Blood Cells % 0 %; Platelet Count 275 10^3/uL (130-400); Red Blood Cell Count 2.61 10^6/uL (4.20-5.40); White Blood Cell Count 15.3 10^3/uL (4.8-10.8)
[2024-09-23 06:37] LABS: ALT (SGPT) < 10 U/L (0-35); AST (SGOT) 22 U/L (14-36); Albumin 2.9 g/dl (3.5-5.0); Alkaline Phosphatase 83 U/L (38-126); Blood Urea Nitrogen 17 mg/dl (7-17); Calcium 6.8 mg/dl (8.4-10.2); Carbon Dioxide 24 mmol/L (22-30); Chloride 102 mmol/L (98-107); Estimated Creatinine Clearance 57 ml/min; Glucose 87 mg/dl (70-99); Potassium 3.7 mmol/L (3.5-5.1); Sodium 137 mmol/L (135-145); Total Bilirubin 0.5 mg/dl (0.2-1.3); Total Protein 5.2 g/dl (6.3-8.2); eGFR > 60.00
[2024-09-23 07:05] VITALS: BP 90/53
[2024-09-23 08:14] VITALS: BMI 21.1
--- NOTE | 2024-09-23 08:27 | CON.GI ---
Addendum entered and electronically signed by Iftikhar Amezcua DO 09/23/24 17:13:
I saw and examined the patient.
The HOSPICE DIRECTOR's note was reviewed and I agree with the note.
Comment: Agree with the detailed note as below. Discussed with patient's family members at bedside along her son, Romeo, who is also the POA. Wishes to defer any further procedures or any other interventions at this time given her advance age,
current clinical condition, and advanced dementia. This is certainly reasonable particularly given her stable Hgb and now with brown bowel movements and pursuing an EGD is not without risks particularly concern for potential aspiration and/or
unforeseen cardiopulmonary complications during the procedure. In discussion with Romeo this afternoon, considering palliative care for comfort measures. Thus, will defer any plans for an EGD at this time. Would continue empiric PPI 40 mg BiD while
in house. Tolerating CLD and may ADAT. Trend serial Hgb while inpatient. Recommend palliative care consult this admission after discussing with patient's son. See rest of care as outlined below.
GI team will sign-off. Please recontact if patient's clinical course were to change or any other any questions or concerns.
Addendum entered and electronically signed by SUDHIR Vargas 09/23/24 12:39:
CBC repeated, Hemoglobin 8.1 up from 7.6 this morning. Patient had brown bowel movement. Discussed with patient's son Romeo after he had a chance to discuss with other family members. They would not like any endoscopic intervention. Will continue
clear liquid diet at this point. Sent [place] text to internal medicine attending. At this time would allow patient clear liquid diet advance as tolerated. CBC ordered for a.m. Continue pantoprazole IV twice daily. Currently being treated for URI
versus UTI. Patient with advanced dementia..
Original Note:
Consultation
-
Date/Time Consultation Requested: 09/23/24800
Date/Time Consultation Performed: 09/23/24814
Requesting Provider: Dr. Lopez
Performing Provider: Dr. Amezcua/SUDHIR Mclaughlin
Reason for Consultation: OB pos stool, anemia
Medical History
Chief Complaint / HPI
Chief Complaint: pale, not eating
History of Present Illness:
89yo with hx GERD, HTN, CKD, hypothyroidism, hyperlipidemia, scleroderma, Raynaud's, hear of hearing, sacral ulcer, dementia with hx of admission for hematochezia 08/16/24-08/21/24 without any furthing bleeding during her hospital stay. No need for
transfusion and no endoscopic evaluation performed secondary to the same plus patient advanced dementia. She returns to the ER as the longterm thought that her speech was slurred, she was complaining of body pain and she would not eat all day or
take her medication. They also felt that she looked pale. She also had black pasty stool. The patient was found to have a leukocytosis. COVID and influenza were negative. She was started on Vanco and Zosyn for possible URI versus UTI. Her
hemoglobin initially was 9. Rectal exam showed heme positive black pasty stool. She was allowed to have clear liquid diet. Her hemoglobin did drop from 9.0-7.6 this morning prompting GI consultation. Patient is pleasantly confused. She has no
complaints. She had no signs of active bleeding overnight. I did speak to RN. She did have a dark stool. Of note she is on oral iron however she does have a low hemoglobin. Currently this morning temp 99.5, pulse 100, BP 90/53, respirations 19
and O2 sat 93% on room air. She is lying in the bed in no apparent distress. The patient has never had EGD in the past. Her last colonoscopy was 10 years ago at [facility]. The patient did have admission in June with coffee ground
emesis. No reports of coffee-ground emesis recently. I did speak to her son Romeo [phone], he would like to speak to other family members some of who are in healthcare. In the past they have held off on any endoscopic procedures. We
discussed that she is OB positive. And that she has never had endoscopy before. Her last colonoscopy was 10 years ago. Risk benefits ratio was alternatives were given. We also discussed about if her hemoglobin drops below 7 we would recommend
blood transfusion. This is something he would like to also discuss with family members as well. In the interim we will repeat CBC to ensure that this hemoglobin is in fact 7.6. Currently at the present time patient is not having any active signs
of bleeding. I did discuss with her nurse Femi that if patient were to show any active signs of bleeding to call us immediately. We will touch base with family later today unless required sooner. Otherwise in the interim continue to keep patient
on clear liquid diet.
Past Medical History
Past Medical History: GERD, HTN, Hypothyroidism, Renal Failure (CKD), Psychiatric (dementia) and Other (Raynaud's, hard of hearing, GI bleeding post colonoscopy about 10 years ago)
Past Surgical History: Appendectomy, Bowel Resection, , Gynecological (hysterectomy, x 4) and Orthopedic (back and hips surgery )
Social History
Tobacco: Former Smoker (quit in her 20's)
Alcohol: None
Drug: None
Living: Skilled Nursing
Employment: Retired
Family History
Family History: Reviewed & Not Pertinent
Allergies / Home Medications
Allergy/AdvReac Type Severity Reaction Status Date / Time
codeine Allergy Unknown Verified 09/22/24 18:04
�Medication �Instructions �Recorded
atorvastatin 20 mg tablet (Lipitor) 20 mg PO HS High Cholesterol 09/09/23
calcium carbonate (Calcium 600) 600 mg PO BID Supplement 09/09/23
donepezil 10 mg tablet 10 mg PO HS memory/cognition 09/09/23
ferrous sulfate 325 mg (65 mg 325 mg PO MOWEFR@0900 Supplement 09/09/23
iron) tablet
ibandronate 150 mg tablet 150 mg PO MONTHLY 09/09/23
levothyroxine 50 mcg tablet 50 mcg PO DAILY Thyroid 09/09/23
(Synthroid)
pantoprazole 40 mg tablet,delayed 40 mg PO HS Gastrointestinal Issue 09/09/23
release
loperamide 2 mg capsule 2 mg PO Q4HPRN PRN diarrhea 08/09/24
cholecalciferol (vitamin D3) 25 25 mcg PO DAILY Supplement 08/16/24
mcg (1,000 unit) tablet
acetaminophen 500 mg tablet 1,000 mg PO TID 09/22/24
amlodipine 5 mg tablet (Norvasc) 5 mg PO DAILY 09/22/24
collagenase clostridium histo. 250 1 applic topical DAILY 09/22/24
unit/gram topical ointment (Santyl)
Review of Systems
-
Unable to obtain full review of systems at this time due to: Dementia and Other (Declines any complaints currently)
Vital Signs
Temp Pulse Resp BP Pulse Ox
99.5 F 100 19 90/53 93
09/23/24 07:05 09/23/24 07:05 09/23/24 07:05 09/23/24 07:05 09/23/24 07:05
Physical Exam
Exam
General: No Apparent Distress and Comfortable
HEENT: Anicteric
Respiratory: Clear (Anterior)
Cardiac: Regular Rhythm
GI: Soft, Non Distended, Normal Bowel Sounds and Tender (mild periumbilical tenderness)
Musculoskeletal: No Edema
Skin: Warm and Dry
Neuro: Awake and Alert
Psych: Calm and Confused
Results
WBC 15.3 10^3/uL (4.8-10.8) H 09/23/24 05:25
Hgb 7.6 g/dL (12.0-16.0) L 09/23/24 05:25
Hct 21.9 % (37.0-47.0) L 09/23/24 05:25
MCV 83.9 fL (81.0-99.0) 09/23/24 05:25
Plt Count 275 10^3/uL (130-400) 09/23/24 05:25
Absolute Neuts (auto) 12.6 10^3/uL (1.4-6.5) H 09/23/24 05:25
Sodium 137 mmol/L (135-145) 09/23/24 05:25
Potassium 3.7 mmol/L (3.5-5.1) 09/23/24 05:25
Chloride 102 mmol/L (98-107) 09/23/24 05:25
Carbon Dioxide 24 mmol/L (22-30) 09/23/24 05:25
BUN 17 mg/dl (7-17) 09/23/24 05:25
Creatinine 0.6 mg/dL (0.6-1.0) 09/23/24 05:25
Calcium 6.8 mg/dl (8.4-10.2) L* 09/23/24 05:25
Total Bilirubin 0.5 mg/dl (0.2-1.3) 09/23/24 05:25
AST 22 U/L (14-36) 09/23/24 05:25
ALT < 10 U/L (0-35) 09/23/24 05:25
Alkaline Phosphatase 83 U/L (38-126) 09/23/24 05:25
Diagnostic Image Results:
Chest x-ray:
IMPRESSION:
Stable linear scarring within the medial aspect of both lower lungs.
Cardiomegaly with no evidence for pulmonary edema or pleural effusion.
CT head:
IMPRESSION:
No evidence of acute intracranial abnormality.
Prior GI Procedures:
EGD: Never
Colonoscopy: 10 years ago in [place] per family
Assessment / Plan
-
89yo with hx GERD, HTN, CKD, hypothyroidism, hyperlipidemia, scleroderma, Raynaud's, hear of hearing, sacral ulcer, dementia with hx of admission for hematochezia 08/16/24-08/21/24 without any furthing bleeding during her hospital stay. No need for
transfusion and no endoscopic evaluation performed secondary to the same plus patient advanced dementia. She returns to the ER as the longterm thought that her speech was slurred, she was complaining of body pain and she would not eat all day or
take her medication. Rectal exam showed heme positive black pasty stool. She was allowed to have clear liquid diet. Her hemoglobin did drop from 9.0-7.6 this morning prompting GI consultation. The patient is on oral iron. She continues on
pantoprazole 40 mg IV twice daily. She has had no active signs of GI bleeding since here. BUN is not elevated. The patient has never had EGD in the past. Her last colonoscopy was 10 years ago at [facility]. The patient did have admission
in June with coffee ground emesis. No reports of coffee-ground emesis recently. I did speak to her son Romeo [phone], he would like to speak to other family members some of who are in healthcare. In the past they have held off on any
endoscopic procedures. We discussed that she is OB positive. And that she has never had endoscopy before. Her last colonoscopy was 10 years ago. Risk benefits ratio was alternatives were given. We also discussed about if her hemoglobin drops
below 7 we would recommend blood transfusion. This is something he would like to also discuss with family members as well.
Impression:
Anemia
OB positive stool-> dark stool however in the setting of oral iron
Dementia
Plan:
-Recheck CBC, then trend
-Continue clear liquid
-Continue pantoprazole 40 mg IV twice daily
-Discussed with son Romeo [phone], he would like to discuss with family members if they would like to pursue any endoscopic intervention. At the present time we will hold off until further family discussions.
-Also discussed with son about possibility of blood transfusion if hemoglobin drops below 7. Again he is unsure about this.
-Patient with some mild epigastric tenderness. If no endoscopic intervention planned and patient family wishes to pursue them would recommend CT of the abdomen and pelvis as this may clarify patient's further symptoms over the past few months.
-
-
Thank you for consultation and allowing me to participate in the patient's care. Please call the telephone betting clerk GI physician during the after hours with any questions or concerns.
[2024-09-23] MEDS: TYLENOL 1000 MG PO (08:33)
[2024-09-23] MEDS: NSS (PRESERVATIVE FREE) 10 ML IV ×2 (08:33→21:51)
[2024-09-23] MEDS: PROTONIX IV 40 MG IV ×2 (08:33→21:51)
[2024-09-23] MEDS: NORVASC 5 MG PO (08:33)
[2024-09-23] MEDS: VITAMIN D3 (cholecalciferol) PO (08:34)
[2024-09-23] MEDS: OSCAL CAL 500 PO ×2 (08:34→21:52)
[2024-09-23 09:58] LABS: Hematocrit 23.5 % (37.0-47.0); Hemoglobin 8.1 g/dL (12.0-16.0); Mean Corp Hgb Conc. 34.5 g/dL (33.0-37.0); Mean Corpuscular Volume 84.2 fL (81.0-99.0); Red Blood Cell Count 2.79 10^6/uL (4.20-5.40); Red Cell Dist. Width 17.2 % (11.5-14.5); White Blood Cell Count 16.5 10^3/uL (4.8-10.8)
--- NOTE | 2024-09-23 11:16 | W.PN.HOSP.TC ---
Addendum entered and electronically signed by Nasir Lopez MD 09/24/24 13:31:
Normocytic anemia initially concern for GI bleed however per report brown stool, hemoglobin, continues to improve. has not required blood transfusion, infact family is not even intrested in blood transfusions. Also, hemodynamically stable. With
even saying that family not interested in further and intervention such as EGD/bidirectional scope. On clear liquid diet advance as tolerated.
Began having goals of care discussion consult palliative care family will consider hospice as well.
Will begging dc planning.
Original Note:
Today's Communication/Plan
-
.
Assessment / Plan
Assessment / Plan
1. Leukocytosis - Consider URI vs UTI
-18.2 K on admission, 15-16 K today
-CXR (09/22); stable linear scarring medial aspect of both lower lungs
-COVID and influenza negative
-UA (09/22): Positive nitrates, 2+ leukocyte Estrace, greater than 100 WBCs, many urine bacteria
-Cardiac BNP 4400
-Given Vanco and Zosyn in ED; discontinued, start antibiotics for urinary tract infection
2. Upper GI bleeding
-Hemoglobin stable at 9
-Rectal exam showed heme positive black pasty stool performed because she looks pale
-EGD declined
-Hb decreased to 8.1 this morning, GI consulted, EGD declined, repeat Hb 8.1.
- Appreciate GI reccs: CLD and advance as tolerated; CBC in AM, continue pantoprazole IV BID
# Hypocalcemia
-Replete calcium
GERD
-Continue Protonix
Essential hypertension
-Continue amlodipine
Dementia
-Continue donepezil
Hypothyroidism
-Levothyroxine
Hyperlipidemia
-Continue statin
Scleroderma
Raynaud's syndrome
DNR/DNI
DVT prophylaxis�SCDs
Clear liquid diet
Spoke with the family (in particular Romeo, who is POA, son). Updated on patient's condition. They would like to defer interventional strategies including EGD and blood transfusions currently. They are speaking as a family to decide if palliative
care or hospice is more appropriate for their mother.
Anticipated Discharge: 24 - 48 hours
Subjective/Interval History
-
Date of Service: September 23, 2024
Patient seen and examined while resting in bed with daughter and son-in-law at bedside. Patient's son Romeo is on speaker phone. Brief history from son that the patient has dementia that has recently been advancing, lives at long term and day of
arrival was yelling at nurses to 'help me, help me'. Patient appeared pale to them and appeared to be slurring her words and was sent to the ED. Per son and daugher, dementia seems to be progressively worsening, with reports of episodes of agitation
at the long term, which has been out of the ordinary for her. Patient's family (MIKAYLA Walters) feels that they do not want EGD workup, blood transfusions. They are in the midst of discussing palliative care vs. hospice for the patient.
Objective Data
-
Labs:
Laboratory Results
09/23/24 09/23/24
05: 09:28
WBC 15.3 H 16.5 H
Hgb 7.6 L 8.1 L
Hct 21.9 L 23.5 L
Plt Count 275
Sodium 137
Potassium 3.7
Chloride 102
Carbon Dioxide 24
BUN 17
Creatinine 0.6
Glucose 87
Calcium 6.8 L*
Total Bilirubin 0.5
AST 22
ALT < 10
Alkaline Phosphatase 83
Vital Signs:
Vital Signs
Temp Pulse Resp BP Pulse Ox
99.5 F 100 19 90/53 93
09/23/24 07:05 09/23/24 07:05 09/23/24 07:05 09/23/24 07:05 09/23/24 07:05
Review of Systems
-
Unable to obtain full review of systems at this time due to: Dementia
Physical Exam
-
General: No Apparent Distress and Other (pleasantly demented)
HEENT: Normocephalic, Atraumatic and Anicteric
Respiratory: Clear to Auscultation and Non Labored Respirations
Cardiac: Regular Rhythm
GI: Soft, Nontender, Nondistended and Normal Bowel Sounds
Musculoskeletal: No Clubbing, No Cyanosis and No Edema
Skin: Warm and Dry
Neuro: Awake
Psych: Calm and Apparent Dementia
Data Reviewed
-
Diagnostic Radiology: Report Reviewed by me
Labs: Labs Reviewed by me and Discussed with Patient
--- NOTE | 2024-09-23 11:30 | WOUNDNOTE ---
SACRUM (with photo flash)
--- NOTE | 2024-09-23 11:47 | WOUNDNOTE ---
[facility] RN note: Patient admitted with GI bleed. Patient admitted from SNF. Family visiting.
See H&P for complete history.
PMH: GERD, HTN, CKD, Raynaud's, hearing loss, dementia, appendectomy, bowel resection, hysterectomy, back surgery, L hip replacement, scleroderma.
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 Heels blanchable red. Perineal MASD.
Appetite: poor for breakfast.
Pressure redistribution devices in place: Verscare Accumax. Patient does not turn self in bed. She moves her legs/feet.
Plan: Patient incontinent of loose soft brown stool. Jadyn care given, Waffle static air overlay applied, sacral wound care done, patient turned to R semi side lying position with help from relations liaison Sheila and FLORENCIA Kahn. Heels off bed with air
chair cushion.
Updated and confirmed orders with hospitalist resident who approved orders and discussed with FLORENCIA Khan.
Care plan to be updated and will follow as needed.
Note to case management of equipment requested for discharge: Air mattress at SNF if not already in place.
Recommend follow up at wound care center upon discharge.
[2024-09-23 15:05] VITALS: BP 110/65
--- NOTE | 2024-09-23 15:14 | CM ---
Confused patient who lives at memory care at [facility].Spoke with Romeo son MIKAYLA .She is assisted in all activities of daily living.Romeo believes she may need SNF at ut. She will need [facility] auth.Requested PT OT order form MD. She uses a wheelchair
and walker.
She was a [facility] recently. Pt need air mattress.
Pharmacy [facility]
PCP Dr Bacilio Brown
PLAN Probable in SNF after auth
[2024-09-23 15:26] VITALS: BMI 21.1
[2024-09-23] MEDS: BACTRIM DS 800 MG/160 MG PO (21:52)
[2024-09-23 23:00] VITALS: BP 117/75
--- NOTE | 2024-09-24 00:27 | PTCARENOTE ---
Temperature was not taken during 2300 vitals because patient refused both oral and axillary temps.
[2024-09-24 06:00] VITALS: BMI 21.0
[2024-09-24 07:50] VITALS: BP 106/59
[2024-09-24 08:44] LABS: Hematocrit 26.6 % (37.0-47.0); Mean Corp Hgb Conc. 33.8 g/dL (33.0-37.0); Mean Corpuscular Hgb 28.7 pg (27.0-31.0); Mean Corpuscular Volume 84.7 fL (81.0-99.0); Mean Platelet Volume 10.3 fL (7.4-10.4); Platelet Count 279 10^3/uL (130-400); Red Blood Cell Count 3.14 10^6/uL (4.20-5.40); Red Cell Dist. Width 17.4 % (11.5-14.5); White Blood Cell Count 12.7 10^3/uL (4.8-10.8)
[2024-09-24 09:01] LABS: Blood Urea Nitrogen 12 mg/dl (7-17); Calcium 6.2 mg/dl (8.4-10.2); Carbon Dioxide 25 mmol/L (22-30); Chloride 103 mmol/L (98-107); Estimated Creatinine Clearance 57 ml/min; Glucose 84 mg/dl (70-99); Potassium 3.4 mmol/L (3.5-5.1); Sodium 139 mmol/L (135-145); eGFR > 60.00
--- NOTE | 2024-09-24 09:07 | PTCARENOTE ---
Lab informed this RN of critical calcium value, result= 6.2. MD and resident made aware.
[2024-09-24 09:30] VITALS: BP 101/58; PULSE 73; O2SAT 96
[2024-09-24 09:31] VITALS: BP 101/58; PULSE 73; O2SAT 96
--- NOTE | 2024-09-24 09:39 | PTOTSP ---
pt currently requires total assistance, max assist of 2 to complete simple ADLs, functional transfers, ambulation. pt oriented to self, unable to follow verbal direction. pt required physical cues and prompts to follow direction, complete
activities. pt's speech not goal oriented. no acute OT needs identified, as pt demonstrates advanced dementia and requires total care.
[2024-09-24] MEDS: TYLENOL 1000 MG PO (10:25)
[2024-09-24] MEDS: VITAMIN D3 (cholecalciferol) 25 MCG PO (10:26)
[2024-09-24] MEDS: BACTRIM DS 800 MG/160 MG 1 TABLET PO (10:26)
[2024-09-24] MEDS: OSCAL CAL 500 500 MG PO (10:27)
[2024-09-24] MEDS: NORVASC 5 MG PO (10:28)
[2024-09-24] MEDS: NSS (PRESERVATIVE FREE) 10 ML IV ×2 (10:31→20:51)
[2024-09-24] MEDS: PROTONIX IV 40 MG IV ×2 (10:33→20:51)
--- NOTE | 2024-09-24 10:54 | W.PN.HOSP.TC ---
Addendum entered and electronically signed by Nasir Lopez MD 09/25/24 13:08:
Son elected hospice at [facility]
Will dc abd xray/ctap and le to r/o intrabd path and ?abscess vs lipoma.
DC ID and GI consults
More than 30 minutes spent in discharge including
Final examination of the patient
Summarizing hospital stay
Instructions for continuing care to all relevant caregivers
Preparation of discharge records, prescriptions, and referral forms
Total time spent (in minutes): 33mins
Original Note:
Today's Communication/Plan
-
Palliative Care and Hospice Consults tomorrow, discharge to [facility] tomorrow.
Assessment / Plan
Assessment / Plan
1. Leukocytosis - Consider URI vs UTI
-18.2 K on admission, progressively improving, 12.7 this AM
-CXR (09/22); stable linear scarring medial aspect of both lower lungs
-COVID and influenza negative
-UA (09/22): Positive nitrates, 2+ leukocyte Estrace, greater than 100 WBCs, many urine bacteria
-Cardiac BNP 4400
-Given Vanco and Zosyn in ED; discontinued, started on TMP-SMX yesterday for UTI
2. Upper GI bleeding
-Hemoglobin stable at 9
-Rectal exam showed heme positive black pasty stool performed because she looks pale
-EGD declined
-Hb decreased to 9.0 this morning, improving.
- Appreciate GI reccs: CBC in AM, continue pantoprazole IV BID
- Advance Diet to Full Liquids
# Hypocalcemia
-Corrected to 7.7
-No signs or symptoms
GERD
-Continue Protonix
Essential hypertension
-Continue amlodipine
Dementia
-Continue donepezil
Hypothyroidism
-Levothyroxine
Hyperlipidemia
-Continue statin
Scleroderma
Raynaud's syndrome
DNR/DNI
DVT prophylaxis�SCDs
Clear liquid diet
Spoke with the family (in particular Romeo, who is POA, son). Updated on patient's condition. They would like to defer interventional strategies including EGD and blood transfusions currently. They are speaking as a family to decide if palliative
care or hospice is more appropriate for their mother. Case Management Consult for Hospice and Palliative Care Consult to be placed for morning, when son will be here to speak with them. Patient to be discharged to [facility] tomorrow.
Anticipated Discharge: Within 24 hours
Subjective/Interval History
-
Date of Service: September 24, 2024
Patient seen and examined while resting comfortably in bed. Pleasantly demented and cooperative with exam, but AOx0.
Objective Data
-
Labs:
Laboratory Results
09/24/24
08:13
WBC 12.7 H
Hgb 9.0 L
Hct 26.6 L
Plt Count 279
Sodium 139
Potassium 3.4 L
Chloride 103
Carbon Dioxide 25
BUN 12
Creatinine 0.5 L
Glucose 84
Calcium 6.2 L*
Vital Signs:
Vital Signs
Temp Pulse Resp BP Pulse Ox
97.2 F 94 18 112/69 92
09/24/24 07:50 09/24/24 10:28 09/24/24 07:50 09/24/24 10:28 09/24/24 07:50
I&O
09/23/24 09/24/24 09/25/24
06:59 06:59 06:59
Intake Total 660 / 660
Balance 660 / 660
Review of Systems
-
Unable to obtain full review of systems at this time due to: Dementia
Physical Exam
-
General: No Apparent Distress and Other (pleasantly demented and conversant, but content to answers are incoherent)
HEENT: Normocephalic and Atraumatic
Respiratory: Clear to Auscultation
Cardiac: Regular Rhythm
GI: Soft, Nontender and Nondistended
Musculoskeletal: No Clubbing, No Cyanosis, No Edema and Other (tender right hip)
Skin: Warm
Neuro: Awake, Alert and Other (NOT oriented to self, place, or time)
Psych: Calm
Data Reviewed
-
Labs: Labs Reviewed by me
[2024-09-24] MEDS: TYLENOL PO ×2 (15:15→23:55)
[2024-09-24 15:39] VITALS: BP 119/68
--- NOTE | 2024-09-24 16:17 | CM ---
CM called to patient son Romeo to offer supports. Per physician family is considering hospice vs palliative care. Patient son indicated that he was really struggling with her condition and the dementia. Patient family asking for referral to [facility]
and CM will request physician to place referral for both hospice and Palliative care educational consults at patient family request. CM will continue to follow for discharge planning needs.
Plan; referral to [facility] and requested consults for hospice and palliative care to physician
--- NOTE | 2024-09-24 16:18 | PN.CDI ---
CDI
- -
CDI:
Physician Documentation Request
Admit Date: 09/22/24 21:23
Dear Doctor Cathy,
Clinical Indicators:
Patient admitted with leukocytosis.
09/23 PN, '...start antibiotics for urinary tract infection'
WBC on admission:
09/22/24
18:45
WBC 18.2 H
HR/RR trend on admission:
09/22/24
18:45 09/22/24
20:45 09/22/24
21:00
Pulse 98 95 100
Resp Rate 24 24 24
09/22/24
21:15 09/22/24
22:00
Pulse 91 93
Resp Rate
Please clarify which of the following most accurately describes the status of the patient's infection:
Sepsis, POA
- Systemic manifestations of infection, with 2 or more SIRS criteria which include:
- Fever >100.4 degrees F or hypothermia < 96.8 degrees F
- Leukocytosis - WBC > 12,000 or leukopenia - WBC < 4,000 or > 10% bands
- Tachycardia > 90 beats per minute
- Tachypnea - RR > 20 breaths per minute or PaCO2 , 32mmHg
Source: Merck Manual 2013
UTI Only, Without Systemic Illness
Other
Use of terms such as suspected, likely, concern for, or probable (associated with a specific diagnosis that is being evaluated, monitored, or treated as if it exists) are acceptable and can be coded in the inpatient setting, when documented at the
time of discharge.
Thank you,
Naomie Hernández RN BSN
CDI Specialist
available via tiger text
Please use your independent medical judgment in providing your response.
--- NOTE | 2024-09-24 16:26 | PN.CDI ---
CDI
- -
CDI:
Physician Documentation Request
Admit Date: 09/22/24 21:23
Dear Doctor Cathy,
Clinical Indicators:
Patient admitted with leukocytosis.
09/23 [facility] RN skin/wound assessment: Coccyx Stage 4 Pressure Injury, POA
Treatment: alginate, santyl ointment and silicone border foam dressing
Physician documentation of the type and location of wounds is required for compliant documentation. Based on the above clinical findings and your assessment, please provide the following in your progress note:
1. Location of the ulcer/wound, including laterality.
2. Type (etiology) of ulcer/wound:
- Pressure (decubitus) ulcer
- Other
3. If a pressure ulcer, please also include the stage* of the ulcer:
- Stage 1 - Skin intact, non-blanchable redness
- Stage 2 - Partial thickness loss of dermis, includes intact or open blister
- Stage 3 - Full thickness tissue not including bone, tendon or muscle
- Stage 4 - Full thickness tissue loss, including exposed bone, tendon or muscle
- Unstageable - Full thickness loss in which the base of the ulcer is covered by slough (yellow, waller, peck, green or brown) and/or eschar (waller, brown or black) in the wound bed.
- Unable to determine
Use of terms such as suspected, likely, concern for, or probable (associated with a specific diagnosis that is being evaluated, monitored, or treated as if it exists) are acceptable and can be coded in the inpatient setting, when documented at the
time of discharge.
Thank you,
Naomie Hernández RN BSN
CDI Specialist
available via tiger text
Please use your independent medical judgment in providing your response.
*Source: National Pressure Ulcer Advisory Panel (NPUAP)
[2024-09-24] MEDS: BENADRYL 6.25 MG IV (20:49)
[2024-09-24 23:30] VITALS: BP 137/81
[2024-09-24] MEDS: BACTRIM DS 800 MG/160 MG PO (23:54)
[2024-09-24] MEDS: OSCAL CAL 500 PO (23:54)
--- NOTE | 2024-09-25 04:15 | PTCARENOTE ---
This RN went into patient's room during change of shift and noticed patient vomiting. SUDHIR Schmitz notified. New orders for benadryl IV placed for nausea. Scheduled IV protonix given. Patient has not vomited since these medications have been
administered at 2050. Care ongoing.
[2024-09-25] MEDS: PROTONIX IV 40 MG IV (07:53)
[2024-09-25] MEDS: ZOFRAN 4 MG IV (07:54)
[2024-09-25] MEDS: NSS (PRESERVATIVE FREE) 10 ML IV (07:54)
[2024-09-25 08:14] VITALS: BP 112/73
[2024-09-25 08:47] LABS: Blood Urea Nitrogen 12 mg/dl (7-17); Calcium 6.2 mg/dl (8.4-10.2); Carbon Dioxide 19 mmol/L (22-30); Chloride 102 mmol/L (98-107); Estimated Creatinine Clearance 57 ml/min; Glucose 129 mg/dl (70-99); Potassium 3.1 mmol/L (3.5-5.1); Sodium 140 mmol/L (135-145); eGFR > 60.00
[2024-09-25 09:36] LABS: Hematocrit 29.6 % (37.0-47.0); Hemoglobin 10.2 g/dL (12.0-16.0); Mean Corp Hgb Conc. 34.5 g/dL (33.0-37.0); Mean Corpuscular Hgb 28.6 pg (27.0-31.0); Mean Corpuscular Volume 82.9 fL (81.0-99.0); Mean Platelet Volume 10.1 fL (7.4-10.4); Platelet Count 359 10^3/uL (130-400); Red Blood Cell Count 3.57 10^6/uL (4.20-5.40); Red Cell Dist. Width 17.2 % (11.5-14.5); White Blood Cell Count 27.6 10^3/uL (4.8-10.8)
[2024-09-25] MEDS: TYLENOL PO (10:02)
[2024-09-25] MEDS: NORVASC PO (10:02)
[2024-09-25] MEDS: OSCAL CAL 500 PO (10:02)
[2024-09-25] MEDS: BACTRIM DS 800 MG/160 MG PO (10:02)
[2024-09-25] MEDS: VITAMIN D3 (cholecalciferol) PO (10:02)
--- NOTE | 2024-09-25 10:30 | CM ---
Addendum entered by Patti Christina, RN 09/25/24 12:25:
.[facility] does not have a bed today.
Spoke with Romeo vanegas he spoke with [facility] and he accepted a bed at [facility] today.
As per [facility] Janet financial conversation done and agreed with cost.
Son requested Ambulance. Medical nec form completed. IMM reviewed with son he agrees with DC.
DNROOH form signed by
Rosa
Report [phone]
fax [phone]
PLAn To [facility] t start on hospice
Original Note:
Received consult for Hospice.
Spoke with Romeo [phone] he requested Hospice.
[facility] notified referral placed.
Janet Lee to speak with Romeo about SNF and Hospice and financials.
PLAN Awaiting Hospice determination
--- NOTE | 2024-09-25 11:27 | HOSPNOTE ---
Addendum entered by Marlys Gonzalez RN 09/25/24 14:26:
Patient is going to [facility] and going with their preferred hospice provider. son is aware and in agreement.
Original Note:
Spoke with son and he is in agreement with hospice care. He would like referrals sent to and [facility] and understands it is private pay. CM updated and will await on a bed assignment and discharge. Family is requesting [facility]. Will
continue to follow for discharge.
[2024-09-25 11:51] LABS: Lactic Acid 1.2 mmol/L (0.7-2.0)
--- NOTE | 2024-09-25 13:05 | W.CON.PAL ---
Consultation
-
Date/Time Consultation Requested: 09/25/2024
Date/Time Consultation Performed: 09/25/2024
Requesting Provider: Dr. Morgan/Dr. Lopez
Performing Provider: Dr. Peres
Reason for Consult: Goals of Care Discussion
Primary Diagnosis: Dementia, GI bleeding
Consult Requested By: Patient's Physician
Reason for Admission
Illness Course/HPI
Lucía is a 89 y/o female from memory care unit at [facility]. admitted because of pale color/black stool. found to have GI bleeding. Family opted against aggressive interventions. palliative care consulted to discuss goals.
Met with daughter at bedside. Family had already come to decision regarding hospice services. Agree that based on patient's condition and overall goals, hospice would be most appropriate for her. They are also looking at placement as she needs more
assistance than can be provided at [facility].
Functional Status
non verbal, dependant for all care
Goals of Care Discussion
Patient Goals
comfort oriented
DNR
Objective Data
-
Objective Data:
Vital Signs
Temp Pulse Resp BP Pulse Ox
98 F 111 24 112/73 95
09/25/24 08:14 09/25/24 08:14 09/25/24 08:14 09/25/24 08:14 09/25/24 08:14
Laboratory Results
09/25/24 07:43
09/25/24 07:43
Total Protein 5.2 g/dl (6.3-8.2) L 09/23/24 05:25
Albumin 2.9 g/dl (3.5-5.0) L 09/23/24 05:25
Urine Color Yellow 09/22/24 21:08
Urine Clarity Very cloudy (Clear) 09/22/24 21:08
Urine pH 5.0 (5.0-9.0) 09/22/24 21:08
Ur Specific [place] 1.010 (<1.030) 09/22/24 21:08
Urine Ketones 1+ (Negative) A 09/22/24 21:08
Urine Bilirubin 1+ (Negative) A 09/22/24 21:08
Palliative Performance Scale
Palliative Performance Scale:
PPS Level Ambulation Activity & Evidence of Disease Self Care Intake Conscious Level
100% Full Normal Activity & Work; Full Intake Full
No Evidence of Disease
90% Full Normal Activity & Work; Full Normal Full
Some Evidence of Disease
80% Full Normal Activity with Effort Full Normal or Full
Some Evidence of Disease Reduced
70% Reduced Unable Normal Job/Work Full Normal or Full
Significant Disease Reduced
60% Reduced Unable Hobby/Housework Occasional Normal or Full or Confusion
Significant Disease Assistance Reduced
50% Mainly Sit/Lie Unable to do Any Work Considerable Normal or Full or Confusion
Extensive Disease Assistance Req'd Reduced
40% Mainly in Bed Unable to do Most Activity Mainly Assistance Normal or Full or Drowsy;
Extensive Disease Reduced +/- Confusion
30% Totally Bed Unable to do Any Activity Total Care Normal or Full or Drowsy;
Bound Extensive Disease Reduced +/- Confusion
20% Totally Bed Bound Unable to do Any Activity Total Care Minimal to Full or Drowsy;
Extensive Disease Sips +/- Confusion
10% Totally Bed Bound Unable to do Any Activity Total Care Mouth Care Drowsy or Coma;
Extensive Disease Only +/- Confusion
0%
PPS Score Level:
Palliative Performance Score Response
Palliative Performance Score Response: 30%
Physical Exam
-
General: No Apparent Distress
Psych: Confused and Apparent Dementia
Assessment / Plan
-
Assessment/Plan:
Family has decided to pursue hospice, meetign with hospice later today
Code status DNR.
Total floor time 40 mins
--- NOTE | 2024-09-25 13:30 | W.PN.HOSP.TC ---
Addendum entered and electronically signed by Nasir Lopez MD 09/25/24 15:32:
Son elected hospice at SNF
Will dc abd xray/ctap and le to r/o intrabd path and ?abscess vs lipoma.
DC ID and GI consults
More than 30 minutes spent in discharge including
Final examination of the patient
Summarizing hospital stay
Instructions for continuing care to all relevant caregivers
Preparation of discharge records, prescriptions, and referral forms
Total time spent (in minutes): 33mins
Original Note:
Today's Communication/Plan
-
.
Assessment / Plan
Assessment / Plan
1. Leukocytosis - Consider URI vs UTI
-Previously UTI only without systemic illness
-Elevated today to 27.6
- Today also tachycardic/tachypnic meeting SIRS criteria for sepsis; CT abd/pelv, US Groin, Lactate, BCx, ID consult ordered, but patient's family decided on hospice this AM, and additional workup was subsequently cancelled.
-CXR (09/22); stable linear scarring medial aspect of both lower lungs
-COVID and influenza negative
-UA (09/22): Positive nitrates, 2+ leukocyte Estrace, greater than 100 WBCs, many urine bacteria
-Cardiac BNP 4400
-Given Vanco and Zosyn in ED; discontinued, started on TMP-SMX 2 days ago for UTI
2. Upper GI bleeding
-Hemoglobin stable at 9
-Rectal exam showed heme positive black pasty stool performed because she looks pale
-EGD declined
-Hb decreased to 9.0 this morning, improving.
- Appreciate GI reccs: CBC in AM, continue pantoprazole IV BID
- Advance Diet to Full Liquids
# Hypocalcemia
-Corrected to 7.7
-No signs or symptoms
GERD
-Continue Protonix
Essential hypertension
-Continue amlodipine
Dementia
-Continue donepezil
Hypothyroidism
-Levothyroxine
Hyperlipidemia
-Continue statin
Scleroderma
Raynaud's syndrome
Coccyx Stage 4 Pressure Injury, POA
DNR/DNI
DVT prophylaxis�SCDs
Clear liquid diet
In light of patient having multiple admissions to hospital with various workups and treatments in the setting of advanced dementia, the patient's family has decided to place the patient on hospice care. The patient will be discharged to [place] where she will begin hospice.
Anticipated Discharge: Today
Subjective/Interval History
-
Date of Service: September 25, 2024
Patient seen and examined in the AM. History is limited secondary to advanced dementia, but per nursing, the patient vomited x 2 in the am. Additionally, patient appears as if she has the chills and is wrapped in multiple blankets.
Objective Data
-
Labs:
Laboratory Results
09/25/24
07:43
WBC 27.6 H
Hgb 10.2 L
Hct 29.6 L
Plt Count 359 D
Sodium 140
Potassium 3.1 L
Chloride 102
Carbon Dioxide 19 L
BUN 12
Creatinine 0.5 L
Glucose 129 H
Calcium 6.2 L*
Vital Signs:
Vital Signs
Temp Pulse Resp BP Pulse Ox
98 F 111 24 112/73 95
09/25/24 08:14 09/25/24 08:14 09/25/24 08:14 09/25/24 08:14 09/25/24 08:14
I&O
09/24/24 09/25/24 09/26/24
06:59 06:59 06:59
Intake Total 660 / 660 120 / 120
Balance 660 / 660 120 / 120
Review of Systems
-
Unable to obtain full review of systems at this time due to: Dementia
Physical Exam
-
General: Chills and Other (less conversant than past days)
HEENT: Normocephalic and Atraumatic
Respiratory: Clear to Auscultation
Cardiac: Regular Rhythm
GI: Soft and Other (unable to assess tenderness to palpation)
Musculoskeletal: No Clubbing, No Cyanosis and No Edema
Skin: Warm and Dry
Neuro: Awake
Psych: Apparent Dementia
Data Reviewed
-
Labs: Labs Reviewed by me
[2024-09-25 15:19] VITALS: BP 112/73
--- NOTE | 2024-09-25 15:46 | W.DCSUMMARY ---
Discharge Summary
Discharge Data
Date of Admission: 09/22/24
Date of Discharge: 09/25/24
-
Pending Results: No
Hospital Course
Lucía Chavis is a 89-year-old female with a past medical history of GERD, hypertension, chronic kidney disease, hypothyroidism, hyperlipidemia, Raynaud's syndrome, hearing loss, advanced dementia who presented to outside hospital emergency
department after being sent by [facility] staff for appearing pale, slurred speech, body aches.
HISTORY OF PRESENT ILLNESS
History limited due to advanced dementia. Per [facility] staff, patient appeared pale, exhibited slurred speech, had loss of appetite and appeared to have body aches. Per the patient's family, the patient's dementia had been progressively and
rapidly progressing over the past month.
ED COURSE
In the emergency department, the patient exhibited a mostly benign exam does not outside of her baseline, however she did have heme positive stool that appeared black and pasty as well as pallor and an open wound on the coccyx. Patient was
additionally found to have leukocytosis. COVID influenza testing were negative. Her hemoglobin was initially 9 which dropped to 7.6 the next morning. Urinalysis showed evidence of urinary tract infection. Patient was admitted to the hospital for
evaluation of a lower GI bleed and treatment of urinary tract infection.
HOSPITAL COURSE
Gastroenterology was consulted early on, however the patient's family declined any invasive procedures including an EGD or blood transfusions. At this time, the patient' family decided between placing the patient on palliative care or hospice,
since the patient required multiple hospitalizations over the preceding few months and her dementia was rapidly progressing. Patient was placed on a clear liquid diet which was tolerated in the interim. Over the next 2 days, the patient appeared
well, and her leukocytosis started to improve (not resolved), and her hemoglobin was trending up. On the morning of 09/25/2024, the patient's white blood cell count elisa again, and the patient was tachypneic and tachycardic prompting discussion of a
workup to find the source of infection. At this time the patient's family decided on placing the patient on hospice. This workup was thus canceled, and the patient was discharged to [facility] in order to be placed on hospice
care for advanced dementia.
Discharge Plan
-
Patient Disposition: Jail/SNF
Discharge Diagnosis/Procedures: Urinary Tract Infection
Upper Gastrointestinal Bleed
Advanced Dementia
Condition: Fair
Diet: Other diet
Additional Diets: Full Liquid
Activity: As tolerated
Other Services: Hospice
Activity Restrictions/Additional Instructions:
Wound Care Instructions
Sacral ulcer-clean with saline or Vashe wound cleanser, Santyl ointment prn necrotic tissue, pack with strip of alginate, cover with silicone border foam, change daily and prn loosened dressing.
Air mattress
Turning schedule
Elevate heels off bed.
Pressure redistributing chair cushion (i.e. Air chair cushion).
Follow up with wound healthcare receptionist or at wound care center call for an appointment.
Referrals:
NONE,* [Family Provider] -
Prescriptions:
New
sulfamethoxazole-trimethoprim 800-160 mg Tablet
1 tab PO BID Qty: 30 0RF
Continued
atorvastatin [Lipitor] 20 mg Tablet
20 mg PO HS
donepezil 10 mg Tablet
10 mg PO HS
calcium carbonate [Calcium 600] 600 mg calcium (1,500 mg) Tablet
600 mg PO BID
levothyroxine [Synthroid] 50 mcg Tablet
50 mcg PO DAILY
pantoprazole 40 mg Tablet,Delayed Release (Dr/Ec)
40 mg PO HS
ferrous sulfate 325 mg (65 mg iron) Tablet
325 mg PO MOWEFR@0900
ibandronate 150 mg Tablet
150 mg PO MONTHLY
Rx Instructions:
given on the of every month
loperamide 2 mg Capsule
2 mg PO Q4HPRN MDD 6mg PRN (Reason: diarrhea)
cholecalciferol (vitamin D3) 25 mcg (1,000 unit) Tablet
25 mcg PO DAILY
amlodipine [Norvasc] 5 mg Tablet
5 mg PO DAILY
acetaminophen 500 mg Tablet
1,000 mg PO TID
Santyl 250 unit/gram Ointment
1 applic TOPICAL DAILY
Discharge Orders:
Discharge Patient (As Directed); Ordered 09/25/24
Ordered By: Ozzy Morgan
Discharge Date and Time
Discharge Date/Time: 09/25/24 15:49
Print Language: PASHTO
== END 2024-09-25 15:49 | disposition hospice, inpatient (51) | DRG 871 ==
LOC: 3 WEST ACU 21:23
PROVIDERS: Clinical Nurse Specialist Family Health; Nurse Practitioner; ADMITTING PHYSICIAN Hospitalist; ATTENDING PHYSICIAN Hospitalist; CONSULT PHYSICIAN Internal Medicine Hospice and Palliative Medicine; CONSULT PHYSICIAN Student in an Organized Health Care Education/Training Program; EMERGENCY PHYSICIAN Emergency Medicine
DX: A41.9 Sepsis, unspecified organism (principal); L89.154 Pressure ulcer of sacral region, stage 4; N39.0 Urinary tract infection, site not specified; K92.2 Gastrointestinal hemorrhage, unspecified; I13.0 Hypertensive heart and chronic kidney disease with heart failure and stage 1 through stage 4 chronic kidney disease, or unspecified chronic kidney disease; Z11.52 Encounter for screening for COVID-19; R62.7 Adult failure to thrive; Z68.20 Body mass index [BMI] 20.0-20.9, adult; E83.51 Hypocalcemia; N18.9 Chronic kidney disease, unspecified; D63.1 Anemia in chronic kidney disease; K21.9 Gastro-esophageal reflux disease without esophagitis; I50.9 Heart failure, unspecified; E03.9 Hypothyroidism, unspecified; I73.00 Raynaud's syndrome without gangrene; Z66 Do not resuscitate; Z51.5 Encounter for palliative care; F02.80 Dementia in other diseases classified elsewhere, unspecified severity, without behavioral disturbance, psychotic disturbance, mood disturbance, and anxiety; E78.00 Pure hypercholesterolemia, unspecified; M34.9 Systemic sclerosis, unspecified; G30.9 Alzheimer's disease, unspecified; H91.90 Unspecified hearing loss, unspecified ear; Z87.891 Personal history of nicotine dependence
CPT/HCPCS: 70450; 71046; 80048; 80053; 81003; 81015; 83605; 83880; 84484; 85025; 85027; 86850; 86900; 86901; 87040; 87077; 87086; 87186; 87502; 87811; 93005; 97163; 97167; 99285